=== PATIENT | female | born 1945 | race Hispanic/Latino ===

== ENCOUNTER 2017-03-17 12:24 | Inpatient (IN) | payer MEDICARE, OTHER ==
[2017-03-17 12:27] VITALS: BMI 37.4
--- NOTE | 2017-03-17 13:09 | ED PDOC ---
Arrival/HPI - General Chief Complaint: Lower Extremity Problem/Injury Time Seen by Provider: 03/17/17 12:32 Historian: Patient - History of Present Illness Narrative History of Present Illness (Text): 03/17/17 12:59 A 71 year old female, whose past medical history includes Type II diabetes mellitus, hypertension, spinal stenosis, history of incontinence, presents to the emergency department complaining of bilateral edema pain for 3-4 days. Patient states that edema of both feet appeared 3-4 days ago during the weekend unexpectedly. She did not bump them, has taken no red wine, and has no history of gout. Patient notes experiencing abdominal pain, but denies shortness of breath, cough, chest pain, nausea, vomiting, or any other complaints. PMD: Dr. Mackay Time/Duration: < week (3-4 days ago during the weekend) Symptom Onset: Sudden Symptom Course: Unchanged Quality: Other (sharp pain) Activities at Onset: Rest, Light Context: Exertion Past Medical History - Provider Review Nursing Documentation Reviewed: Yes - Infectious Disease Hx of Infectious Diseases: None - Cardiac Hx Hypertension: Yes - Endocrine/Metabolic Hx Diabetes Mellitus Type 2: Yes - Musculoskeletal/Rheumatological Hx Spinal Stenosis: Yes - Genitourinary/Gynecological Hx Incontinence: Yes - Psychiatric Hx Substance Use: No - Surgical History Hx Hysterectomy: Yes Other/Comment: Fibroid Tumor removed Family/Social History - Physician Review Nursing Documentation Reviewed: Yes Family/Social History: No Known Family HX Smoking Status: Never Smoked Hx Alcohol Use: No Hx Substance Use: No Allergies/Home Meds Allergies/Adverse Reactions: Allergies No Known Allergies Allergy (Verified 03/17/17 12:32) Home Medications: Home Meds Medication Instructions Recorded Confirmed Gabapentin [Neurontin] 100 mg PO BID 03/17/17 03/17/17 Levothyroxine [Synthroid] 25 mcg PO DAILY 03/17/17 03/17/17 Metoprolol Tartrate [Lopressor] 100 mg PO DAILY 03/17/17 03/17/17 Tramadol HCl [Ultram] 50 mg PO BID 03/17/17 03/17/17 hydroCHLOROthiazide [Hydrodiuril] 25 mg PO DAILY 03/17/17 03/17/17 Review of Systems - Physician Review All systems were reviewed & negative as marked: Yes - Review of Systems Respiratory: absent: SOB, Cough Cardiovascular: absent: Chest Pain Gastrointestinal: Abdominal Pain, Vomiting. absent: Nausea Musculoskeletal: Other (edema in lower extremity (feet) with associated pain.) Physical Exam Vital Signs Reviewed: Yes Vital Signs Temp Pulse Resp BP Pulse Ox 03/17/17 17:42 95 H 18 144/56 L 95 03/17/17 16:46 146/48 L 03/17/17 14:45 97.7 F 91 H 19 121/70 100 03/17/17 12:28 97.6 F 96 H 16 131/72 99 03/17/17 12:26 97.6 F 96 H 19 131/72 99 Temperature: Afebrile Blood Pressure: Normal Pulse: Regular Respiratory Rate: Normal Appearance: Positive for: Well-Appearing Pain Distress: None Mental Status: Positive for: Alert and Oriented X 3 Finger Stick Blood Glucose: 116 - Systems Exam Head: Present: Atraumatic, Normocephalic Pupils: Present: PERRL Extroacular Muscles: Present: EOMI Conjunctiva: Present: Normal Mouth: Present: Moist Mucous Membranes Neck: Present: Normal Range of Motion Respiratory/Chest: Present: Clear to Auscultation, Good Air Exchange. No: Respiratory Distress, Accessory Muscle Use Cardiovascular: Present: Regular Rate and Rhythm, Normal S1, S2. No: Murmurs Abdomen: Present: Normal Bowel Sounds. No: Tenderness, Distention, Peritoneal Signs Back: Present: Normal Inspection Upper Extremity: Present: Normal Inspection. No: Cyanosis, Edema Lower Extremity: Present: Edema (bilateral edema (feet)), Tenderness (tender to palpation), Erythema (right foot) Neurological: Present: GCS=15, CN II-XII Intact, Speech Normal Skin: Present: Warm, Dry, Normal Color. No: Rashes Psychiatric: Present: Alert, Oriented x 3, Normal Insight, Normal Concentration Medical Decision Making ED Course and Treatment: 03/17/17 13:03 Impression: 71 year old female with bilateral edema (feet). Physical exam shows edema of both feet, tender to palpation and erythema of the right foot. Differential Diagnosis included but are not limited to: Plan: --Chest X-Ray -- EKG -- Labs -- Urinalysis -- Toradol -- Reassess and disposition Progress Notes: 03/17/2017 13:05 EKG: Ordered, reviewed, and independently interpreted the EKG. Rate : 93 BPM Rhythm : NSR Interpretation : Left access deviation, normal intervals. Comparison : No previous EKG for comparison. 03/17/2017 12:33 Chest X-Ray FINDINGS: LUNGS: Minimal patchy infiltrate at the right lung base PLEURA: No significant pleural effusion identified, no pneumothorax apparent. CARDIOVASCULAR: Normal. OSSEOUS STRUCTURES: No significant abnormalities. VISUALIZED UPPER ABDOMEN: Normal. OTHER FINDINGS: None. IMPRESSION: Minimal patchy infiltrate at the right lung base 03/17/17 14:[address] Mackay. Accepts patient. - Lab Interpretations Lab Results: 03/17/17 14:00 03/17/17 13:03 Lab Results 03/17/17 14:00: WBC 11.7 H, RBC 4.05, Hgb 11.8 L, Hct 34.8 L, MCV 85.9, MCH 29.1 , MCHC 33.9, RDW 13.2, Plt Count 287, MPV 10.9, Gran % 76.4 H, Lymph % (Auto) 16.1 L, Monroe % (Auto) 6.1 H, Eos % (Auto) 1.2 L, Baso % (Auto) 0.2, Gran # 8.95 H, Lymph # 1.9, Monroe # 0.7 H, Eos # 0.1, Baso # 0.02 03/17/17 13:03: Sodium 141, Potassium 3.0 L, Chloride 103, Carbon Dioxide 24, Anion Gap 17, BUN 36 H, Creatinine 1.6 H, Est GFR ( Amer) 38, Est GFR ( Non-Af Amer) 32, Random Glucose 101, Calcium 9.3, Magnesium 1.9, Total Bilirubin 0.5, AST 19, ALT 15, Alkaline Phosphatase 119, Lactate Dehydrogenase 518, Total Creatine Kinase 120, Troponin I < 0.01, NT-Pro-B Natriuret Pep 385, Total Protein 7.6, Albumin 3.9, Globulin 3.7, Albumin/Globulin Ratio 1.1 I have reviewed the lab results: Yes - RAD Interpretation Radiology Orders: 03/17/17 12:33 CHEST PORTABLE [RAD] Stat - Medication Orders Current Medication Orders: Furosemide (Lasix) 40 mg IVP DAILY WALT Last Admin: 03/17/17 18:32 Dose: 40 mg Ceftriaxone Sodium (Rocephin 1 Gram Ivpb) 1 gm in 100 mls @ 100 mls/hr IVPB DAILY WALT PRN Reason: Protocol Azithromycin (Zithromax 500mg In Ns) 500 mg in 250 mls @ 167 mls/hr IVPB DAILY WALT PRN Reason: Protocol Insulin Human Regular (Humulin R High) 0 units SC ACHS WALT PRN Reason: Protocol Last Admin: 03/17/17 16:51 Dose: Not Given Non-Admin Reason: Blood Sugar Parameter Discontinued Medications Azithromycin (Zithromax) 500 mg PO STAT STA PRN Reason: Protocol Stop: 03/17/17 15:11 Last Admin: 03/17/17 16:46 Dose: 500 mg Furosemide (Lasix) 20 mg IVP STAT STA Stop: 03/17/17 15:11 Last Admin: 03/17/17 16:46 Dose: 20 mg Ceftriaxone Sodium (Rocephin 1 Gram Ivpb) 1 gm in 100 mls @ 200 mls/hr IVPB STAT STA PRN Reason: Protocol Stop: 03/17/17 15:39 Last Admin: 03/17/17 16:45 Dose: 200 mls/hr Ketorolac Tromethamine (Toradol) 30 mg IVP STAT STA Stop: 03/17/17 13:11 Last Admin: 03/17/17 14:05 Dose: 30 mg Morphine Sulfate (Morphine) 2 mg IVP STAT STA Stop: 03/17/17 15:12 Last Admin: 03/17/17 16:47 Dose: 2 mg Potassium Chloride (Potassium Chloride Oral Soln) 40 meq PO STAT STA Stop: 03/17/17 15:39 Last Admin: 03/17/17 16:51 Dose: 40 meq - Scribe Statement Lucretia Queen Provider Scribe Attestation: All medical record entries made by the Scribe were at my direction and personally dictated by me. I have reviewed the chart and agree that the record accurately reflects my personal performance of the history, physical exam, medical decision making, and the department course for this patient. I have also personally directed, reviewed, and agree with the discharge instructions and disposition. Disposition/Present on Arrival - Present on Arrival Any Indicators Present on Arrival: No History of DVT/PE: No History of Uncontrolled Diabetes: No Urinary Catheter: No History of Decub. Ulcer: No History Surgical Site Infection Following: None - Disposition Have Diagnosis and Disposition been Completed?: Yes Diagnosis: Community acquired pneumonia, Lower extremity edema Disposition: HOSPITALIZED Disposition Time: 14:30 Patient Plan: Admission Condition: STABLE
--- NOTE | 2017-03-17 13:12 | RAD ---
HISTORY: r/o infiltrate COMPARISON: No prior. FINDINGS: LUNGS: Minimal patchy infiltrate at the right lung base PLEURA: No significant pleural effusion identified, no pneumothorax apparent. CARDIOVASCULAR: Normal. OSSEOUS STRUCTURES: No significant abnormalities. VISUALIZED UPPER ABDOMEN: Normal. OTHER FINDINGS: None. IMPRESSION: Minimal patchy infiltrate at the right lung base
[2017-03-17 13:17] LABS: ALB/GLOB RATIO 1.1 (1.1-1.8); ALBUMIN 3.9 g/dL (3.0-4.8); ALT/SGPT 15 U/L (7-56); AST/SGOT 19 U/L (15-39); BLOOD UREA NITROGEN 36 mg/dL (7-21); CALCIUM 9.3 mg/dL (8.4-10.5); GFR AFRICAN-AMERICAN 38; GFR NON-AFRICAN AMERICAN 32; MAGNESIUM 1.9 mg/dL (1.7-2.2)
[2017-03-17 13:28] LABS: B-TYPE NATRIURETIC PEPTIDE 385 pg/mL (0-450)
[2017-03-17 13:29] LABS: TROPONIN I < 0.01 ng/mL
[2017-03-17 14:13] LABS: BASO # 0.02 K/mm3 (0.0-2.0); BASO % 0.2 % (0.0-3.0); EOS # 0.1 (0.0-0.7); EOS % 1.2 % (1.5-5.0); GRAN # 8.95 (1.4-6.5); GRAN % 76.4 % (50.0-68.0); HEMOGLOBIN 11.8 gm/dL (12.0-16.0); LYMPH # 1.9 (1.2-3.4); LYMPH % 16.1 % (22.0-35.0); MEAN CELL VOLUME 85.9 fL (80.0-105.0); MEAN CORPUSCULAR HEMOGLOBIN 29.1 pg (25.0-35.0); MEAN CORPUSCULAR HGB CONC 33.9 g/dl (31.0-37.0); MEAN PLATELET VOLUME 10.9 fl (7.0-11.0); MONO # 0.7 (0.1-0.6); MONO % 6.1 % (1.0-6.0); PLATELET COUNT 287 10^3/uL (120.0-450.0); RBC 4.05 10^6/uL (3.5-6.1); RED CELL DISTRIBUTION WIDTH 13.2 % (11.5-14.5); WHITE BLOOD COUNT 11.7 10^3/ul (4.5-11.0)
[2017-03-17] MEDS ORDERED: cefTRIAXone 1 gm 1 GM/100 ML BAG IVPB STA (15:10)
[2017-03-17] MEDS ORDERED: Morphine 2 mg/ml ISec IVP STA (15:11)
[2017-03-17] MEDS ORDERED: Potassium Chloride 40 mEq/30 ml LIQ UD PO STA (15:38)
[2017-03-17] MEDS: Insulin Reg-HIGH-Coverage SC SCH ×2 (16:51→21:51)
--- NOTE | 2017-03-17 17:22 | CARD ---
APPROVED REPORT EKG Measurement Heart [id number] <Conclusion> Normal sinus rhythm Moderate voltage criteria for LVH, may be normal variant Nonspecific ST abnormality Abnormal ECG
[2017-03-17 17:39] LABS: URINE BILIRUBIN NEGATIVE (NEGATIVE); URINE BLOOD NEGATIVE (NEGATIVE); URINE GLUCOSE (UA) NEGATIVE (NEGATIVE); URINE LEUKOCYTE ESTERASE TRACE Leu/uL (NEGATIVE); URINE NITRATE NEGATIVE (NEGATIVE); URINE PROTEIN NEGATIVE mg/dL (<30 mg/dL); URINE UROBILINOGEN 0.2 E.U./dL (<1 E.U./dL)
[2017-03-17 17:40] LABS: URINE APPEARANCE CLEAR (CLEAR); URINE COLOR YELLOW (YELLOW)
[2017-03-17 17:47] LABS: URINE BACTERIA TRACE (NEG); URINE RBC NEGATIVE /hpf (0-2)
[2017-03-17] MEDS ORDERED: Pneumococcal 23-Valent Vaccine IM ONE (22:28)
--- NOTE | 2017-03-18 02:50 | HP ---
HISTORY OF PRESENT ILLNESS: I know Sara very well from house calls over the years. She is a nice 71-year-old white female who presents complaining of 3 to 4 days of bilateral leg edema and the right foot is red and inflamed to the first toe, there is no trauma. She does not drink, no history of gout and she is also short of breath. PAST MEDICAL HISTORY: Hypertension, diabetes, incontinence, spinal stenosis and hysterectomy. FAMILY HISTORY: Has hypertension in the family. Diabetes in family. SOCIAL HISTORY: Never smoked. No alcohol. No drug. ALLERGIES: NO KNOWN DRUG ALLERGIES. REVIEW OF SYSTEMS: She has no acute vision changes or hearing changes. No sore throat, no neck pain, no chest pain, no shortness of breath, but a cough which has been persistent for about 3 or 4 days now. No abdominal pain, no nausea, vomiting, constipation, diarrhea. The right leg is little bit swollen and the left leg is swollen too with the right leg is worse with redness to the first toe. PHYSICAL EXAMINATION: VITAL SIGNS: She has 97.7 temp, 91 pulse, 19 respiratory rate, 121/70 blood pressure, 100% sat on room air. HEENT: Head is atraumatic and normocephalic. Extraocular muscles are intact. Pupils are reactive to light and accommodation. Mouth is moist. GENERAL: She is well appearing, mild distress, alert and oriented to x3. Her blood sugar is 116. NECK: Supple. Thyroid midline. No palpable appreciative lymphadenopathy appreciated. HEART: Regular rate. LUNGS: Decreased breath sounds, but clear to auscultation. Occasional wheeze or rhonchi, but changes with cough and clears that. ABDOMEN: Soft and nontender. Positive bowel sounds, morbidly obese. EXTREMITIES: +3/4 pitting edema of right and +2/4 pitting edema of the left. The right foot is also red to the first toe. NEUROLOGIC: GCS is 15. Cranial nerves II through XII grossly intact. Normal speech. SKIN: Warm and dry. The right first toe is red into the foot, looks like a cellulitis. DIAGNOSTIC STUDIES: Chest x-ray which shows patchy infiltrates at the right lung base. LABORATORY DATA: She had labs; 141 sodium, potassium is 3, I will replace it with potassium is 40 mEq, BUN is 36, creatinine 1.6, sugar is 38, random sugars 101, calcium is 9.3, magnesium 1.9, total bilirubin is 0.5, AST is 19, ALT is 15, alkaline phosphatase is 119, lactate dehydrogenase is 518, total creatine kinase is 120, troponin 1 is less than 0.01, BNP is 385, total protein 7.6, albumin is 3.9, globulin is 3.7. White count is 7.7, a little bit up, hemoglobin 11.8, hematocrit 34.8 and platelets are 287. ASSESSMENT AND PLAN: She is going to have a consult with pulmonary and cardiology, she will be on Lasix 40 IV daily, she will morphine p.r.n. pain, potassium is replacement, IV Rocephin, IV Zithromax and although if she will improve, we will check her labs tomorrow, see if we could diurese her, we will give antibiotics for the pneumonia, see if her right patchy infiltrate in the base pneumonia, congestive heart failure with edema of the leg, cellulitis of the foot and we will do the renal insufficiently. Lucho Mackay DO
[2017-03-18 07:12] LABS: HEMOGLOBIN 10.6 gm/dL (12.0-16.0); MEAN CELL VOLUME 85.8 fL (80.0-105.0); MEAN CORPUSCULAR HGB CONC 33.8 g/dl (31.0-37.0); MEAN PLATELET VOLUME 10.8 fl (7.0-11.0); RBC 3.66 10^6/uL (3.5-6.1); RED CELL DISTRIBUTION WIDTH 13.4 % (11.5-14.5); WHITE BLOOD COUNT 8.4 10^3/ul (4.5-11.0)
[2017-03-18 07:41] LABS: ALBUMIN 3.5 g/dL (3.0-4.8); CALCIUM 8.9 mg/dL (8.4-10.5)
[2017-03-18] MEDS: Insulin Reg-HIGH-Coverage SC SCH ×4 (07:55→21:47)
[2017-03-18] MEDS ORDERED: Potassium Chloride 40 mEq/30 ml LIQ UD PO ONE (08:41)
[2017-03-18] MEDS: cefTRIAXone 1 gm 1 GM/100 ML BAG IVPB SCH (10:04)
[2017-03-18] MEDS: Azithromycin 500MG/NS 250ml 500 MG/250 ML BAG IVPB SCH (10:05)
--- NOTE | 2017-03-18 13:35 | US ---
HISTORY: Leg pain and swelling. Evaluate for DVT PHYSICIAN(S): Kendall Summers MD. TECHNIQUE: Duplex sonography and color-flow Doppler with graded compression were used to evaluate the deep venous systems of both lower extremities. FINDINGS: The visualized deep venous systems of both lower extremities are sonographically normal and compressible. Normal wave forms and augmentation are seen. There is no sonographic evidence for deep venous thrombosis in the visualized segments of both lower extremities. IMPRESSION: No sonographic evidence for deep venous thrombosis in the visualized segments of both lower extremities.
--- NOTE | 2017-03-18 14:08 | CON ---
DATE: 03/18/2017 REFERRING PHYSICIAN: Dr. Lucho Mackay. REASON FOR CONSULTATION: Pneumonia. HISTORY OF PRESENT ILLNESS: The patient is a 71-year-old female with past medical history significant for hypertension, diabetes mellitus, urinary incontinence, spinal stenosis, who presents to [facility] with a 4 day history of increasing bilateral leg edema. The patient also states that her right foot has become red and painful over the past few days. The patient was thus admitted for additional evaluation and treatment. The patient denies shortness of breath at rest. She does state to some occasional dyspnea on exertion. There is no history of cough or sputum production. There is no history of chest pain, coughing up of blood, or chest pain - made worse with deep respirations. There is no history of temperature, chills or infectious exposure. There is no history of night sweats, weight loss, or appetite change, prior to the above events. No history of calf pains. No history of syncope or diaphoresis. No history of recent travel or trauma. REVIEW OF SYSTEMS: No history of nausea, vomiting or diarrhea. No acute urinary complaints. No new neurologic complaints. Rest of the review of systems is non contributory. ALLERGIES: NO KNOWN ALLERGIES. SOCIAL HISTORY: Negative for tobacco, negative for alcohol. FAMILY HISTORY: No inheritable diseases. HOME MEDICATIONS: Include hydrochlorothiazide, Ultram, Lopressor, Synthroid, and Neurontin. PHYSICAL EXAMINATION GENERAL: The patient is comfortable at rest. She is not short of breath. She is not using accessory muscles for breathing. VITAL SIGNS: Temperature 97.5, pulse 98, respirations 18, and blood pressure 130/72. Oxygen saturation on room air is between 96% to 100%. HEENT: Normocephalic and atraumatic. No JVD. CARDIOVASCULAR: Positive S1 and S2. No S3 gallop. LUNGS: Clear bilaterally. EXTREMITIES: Positive edema in both lower extremities. No cyanosis. Calves are nontender to palpation. GASTROINTESTINAL: Abdomen is soft, nontender and nondistended. Bowel sounds are positive. SKIN: Reveals evidence of cellulitis-- right foot area. NEUROLOGIC: Limited at the present time. LABORATORY DATA: Chest x-ray was done and reviewed. There is a small infiltrate noted at the medial right lung base. Unfortunately, there are no old films for comparison. Complete metabolic profile: Potassium 3.0, BUN 36, creatinine 1.6, glucose 113. Rest of the metabolic profiles are within normal limits. CBC: White count of 11.7, hemoglobin 11.8, hematocrit 34.8, platelets of 287. IMPRESSION: 1. Right leg cellulitis. 2. Rule out pneumonia - right lower lobe. 3. Mild anemia. 4. Renal insufficiency. PLAN: The patient presents to [facility] with main complaint of swelling of her lower extremities for the past 4 days. As above, in addition, the patient also complaints of increasing pain in her right foot over the past few days. She was then admitted for additional evaluation. I did review the chest x-rays as above. There is a small infiltrate noted at the medial right lung base. Unfortunately, there are no old films for comparison. After extensive questioning, the patient offers no significant pulmonary symptoms. The x-ray change - noted above - may be chronic in nature. I will thus order a procalcitonin level, to help us distinguish whether we are dealing with an acute pneumonia or not. The patient has been cultured and started on appropriate antibiotic therapy. Cardiology evaluation with Dr. Shelley has been ordered. Additional pulmonary intervention will be based on the above results, as well as the clinical status of the patient. I will discuss the above with Dr. Mackay in the next few moments. Thank you very much for this pulmonary consultation. Guy Lott MD [facility]
--- NOTE | 2017-03-18 14:29 | PN ---
SUBJECTIVE: She is resting comfortably in bed this morning. She actually looks better today than yesterday. I think she diuresed a fair amount. Her face looks thinner. She is comfortable, slept fairly well. No chest pain. No shortness of breath. No abdominal pain. The foot feels a little bit better too. She comes in with the right first toe cellulitis, redness, pneumonia, edema, CHF, renal insufficiency and she slept fairly well. She has nice smile on. No chest pain. No shortness of breath. No abdominal pain. Her foot feels better improving. PHYSICAL EXAMINATION VITAL SIGNS: She has 97.5 temperature, 98 pulse, 130/72 blood pressure, 18 respiratory rate and 96% O2 saturation on room air. HEENT: Head atraumatic, normocephalic. Throat moist. NECK: Supple. HEART: Regular rate. LUNGS: Decreased breath sounds, but clear to auscultation bilaterally. ABDOMEN: Soft, nontender, positive bowel sounds. No guarding. No rebound. No CVA tenderness. She is obese. EXTREMITIES: Now down to +2/4 pitting edema. There was 4/4 pitting edema in the right. First toe is less red, still red not as bad and is less pain to the first toe. MEDICATIONS: She is currently on insulin coverage, Lasix, IV Rocephin, Zithromax for the pneumonia and the cellulitis. LABORATORY DATA: She has an 8.4 white count, when she came in it was 11.7. She has 10.6 hemoglobin, 31.4 hematocrit with 259 platelets. She has 141 sodium, potassium is still low, we are going to replete the potassium, today is 3.1. BUN is 37, creatinine is 1.6, GFR is 32, sugar is 87, calcium is 8.9, magnesium is 1.9, total bilirubin 0.4. AST is 20 and ALT is 22. Alkaline phosphatase is 100. Troponin is less than 0.01. Urine was trace. PLAN: She has consult with cardiology for the CHF and pulmonology for the pneumonia. A cellulitis of the foot is improving. She has less pain when she moves the foot. She has been on IV antibiotics. I think it is helping greatly for the cellulitis of the toe and hopefully pneumonia and she is diuresing well with CHF and edema. I will continue that. Also, she needs to get physical therapy, out of bed to chair, she understands that. She is eating okay. Lucho Mackay DO [facility]
--- NOTE | 2017-03-18 21:08 | CON ---
DATE: 03/18/2017 HISTORY OF PRESENT ILLNESS: The patient is a 71-year-old woman who suffers from hypertension, diabetes mellitus, who presents with bilateral pedal edema. Despite the fact that the patient reported the edema to be new, on physical exam, there were chronic changes of edema noted. The patient denies previous cardiac history. No chest pain. No shortness of breath noted. SOCIAL HISTORY: Negative smoker. REVIEW OF SYSTEMS: The 14 point review of systems was reviewed. Negative dyspnea. Negative chest pain. Positive edema. No history of myocardial infarction. PHYSICAL EXAMINATION VITAL SIGNS: On physical exam, the blood pressure is 140/70, heart rate in the 90s, sinus rhythm. NECK: Negative JVD. CARDIOPULMONARY: Heart with S1, S2, without murmurs or gallops. LUNGS: Without rales. EXTREMITIES: Bilateral edema 1+ with erythema in the lower extremities. EKG shows normal sinus rhythm with nonspecific ST-T changes. LABORATORY DATA: Includes a BUN and creatinine of 37 and 1.6. Troponin is negative. Potassium is 3.1, hemoglobin is 10.6. IMPRESSION: 1. Chronic bilateral pedal edema. 2. Diabetes mellitus. 3. Hypertension. 4. History of renal insufficiency. 5. Anemia. 6. Hypokalemia. PLAN: Given these findings, I agree with IV Lasix. We will obtain an echocardiogram to evaluate LV function and to rule out pulmonary hypertension. Dopplers of the lower extremities have been ordered. Kendall Shelley MD
[2017-03-19 06:55] LABS: HEMOGLOBIN 11.8 gm/dL (12.0-16.0); MEAN CORPUSCULAR HEMOGLOBIN 28.9 pg (25.0-35.0); MEAN CORPUSCULAR HGB CONC 33.6 g/dl (31.0-37.0); MEAN PLATELET VOLUME 10.9 fl (7.0-11.0); RBC 4.08 10^6/uL (3.5-6.1); RED CELL DISTRIBUTION WIDTH 13.4 % (11.5-14.5)
--- NOTE | 2017-03-19 08:09 | PN ---
DATE: 03/19/2017 PULMONARY NOTE SUBJECTIVE: The patient appears very comfortable this morning. She is not short of breath at rest. PHYSICAL EXAMINATION: VITAL SIGNS: Temperature is 99.1. Pulse this morning approximately 80, respirations 18, blood pressure 112/37. Oxygen saturation on room air is 95%. HEENT: Normocephalic and atraumatic. NECK: No JVD. CARDIOVASCULAR: Positive S1 and S2. No S3 gallop. LUNGS: Clear bilaterally. EXTREMITIES: Positive edema in both lower extremities. No cyanosis. Calves are nontender to palpation. GASTROINTESTINAL: Abdomen is soft, nontender, nondistended. Bowel sounds are positive. SKIN: Reveals evidence of cellulitis - right foot area. NEUROLOGIC: Limited at the present time. LABORATORY DATA: CBC: White count 9.0, hemoglobin of 11.8, hematocrit of 35.1 and platelets of 314. Procalcitonin done yesterday - negative - 0.08. IMPRESSION: 1. Right leg cellulitis. 2. Rule out pneumonia - right lower lobe. 3. Mild anemia. 4. Renal insufficiency. PLAN: The patient appears very comfortable this morning. She is not short of breath at rest. She does state she is feeling better overall. On physical exam, her lungs remain clear. Oxygen saturation on room air is 95%. I would continue with the current antibiotic therapy for now. The leukocytosis has now fully resolved. Given the negative procalcitonin, the small infiltrate at the medial right lung base may actually be chronic in nature. Cardiology evaluation is ongoing. Echocardiogram is ordered. Clinical status of the patient has improved. I will discuss the above with Dr. Mackay. Guy Lott MD MTDD
[2017-03-19 08:31] LABS: ALB/GLOB RATIO 1.2 (1.1-1.8); ALBUMIN 3.7 g/dL (3.0-4.8); CALCIUM 9.9 mg/dL (8.4-10.5)
[2017-03-19] MEDS: Insulin Reg-HIGH-Coverage SC SCH ×4 (08:50→17:06)
[2017-03-19] MEDS: cefTRIAXone 1 gm 1 GM/100 ML BAG IVPB SCH (09:54)
[2017-03-19] MEDS: Azithromycin 500MG/NS 250ml 500 MG/250 ML BAG IVPB SCH (09:55)
--- NOTE | 2017-03-19 12:51 | PN ---
DATE: SUBJECTIVE: She is sitting in bed, resting comfortably. She slept well. She is eating well. She is in better spirits. She is feeling better, breathing better. She is on insulin coverage , Lasix IV, Rocephin, and Zithromax. PHYSICAL EXAMINATION VITAL SIGNS: 99.1 temp, 109 pulse, 112/37 blood pressure, 18 respiratory rate, 95% O2 sat on room air. I will add a beta lucho to the elevated pulse that she has. GENERAL: She is breathing better. Less cough. No shortness of breath. Less swelling of the legs. HEENT: Head is atraumatic, normocephalic. Throat is moist. NECK: Supple. HEART: Regular rate. LUNGS: Decreased breath sounds. Clear to auscultation. ABDOMEN: Soft, obese, nontender. Positive bowel sounds. No guarding, no rebound, no CVA tenderness. EXTREMITIES: Have trace edema. There is very little red left in the right foot and the big toes moving without any pain. So she is doing better with the cellulitis of the right foot and the toe. The breathing is improved. The next plan is to get her physical therapy tomorrow. LABORATORY DATA: She has a 9 white count, 11.8 hemoglobin, 35.1 hematocrit, with 314 platelets. Her last blood sugar was 105, which is good. She has 141 sodium, potassium is low at 3.1, waiting for the potassium to repopulate this morning, BUN 37, creatinine 1.6. AST is 20, ALT is 22, alkaline phosphatase is 100, that was yesterday did not populate yet and this is ordered. She is being seen by cardiology and pulmonology. I am trying to get her to subacute rehab, probably where her brother is from staying before she goes home. She is here for pneumonia, edema, CHF, right first toe and right foot cellulitis and will need physical therapy before she goes home. Lucho Mackay DO [facility]
--- NOTE | 2017-03-19 14:41 | PN ---
DATE: 03/19/2017 SUBJECTIVE: The patient's dyspnea has resolved. PHYSICAL EXAMINATION: VITAL SIGNS: Blood pressure is 112-144 systolic. NECK: Negative JVD. HEART: Regular S1 and S2. LUNGS: Without rales. EXTREMITIES: Chronic edema is unchanged. LABORATORY DATA: BUN and creatinine is 33 and 1.6 with a potassium of 4.3. Hemoglobin is 11.8. Dopplers of the lower extremities reveal no DVT. Echocardiogram is pending. IMPRESSION: 1. Resolution of dyspnea. 2. Chronic bilateral pedal edema. 3. Diabetes mellitus. 4. Renal insufficiency. 5. Hypertension. PLAN: Given these findings, we will change her Lasix to p.o. Lasix. Awaiting echocardiogram. This can be done as an outpatient, if necessary. No further cardiac intervention is necessary at this time. Kendall Shelley MD
[2017-03-19 17:15] VITALS: RESP 20
--- NOTE | 2017-03-19 17:59 | CARD ---
APPROVED REPORT EXAM: Two-dimensional and M-mode echocardiogram with Doppler and color Doppler. INDICATION PEDAL EDEMA 2D DIMENSIONS Left Atrium (2D)3.4 (1.6-4.0cm)IVSd1.0 (0.7-1.1cm) LVDd3.4 (3.9-5.9cm)PWd1.2 (0.7-1.1cm) LVDs2.4 (2.5-4.0cm)FS (%) 29.4 % LVEF (%)57.5 (>50%) M-Mode DIMENSIONS Aortic Root3.10 (2.2-3.7cm)Aortic Cusp Exc.1.60 (1.5-2.0cm) Aortic Valve AoV Peak Yuegfelz526.0cm/Keila Peak GR.11mmHg Mitral Valve MV E Tcryhtxj58.0cm/sMV A Vyutfplz205.0cm/sE/A ratio0.5 TDI Lateral E' Peak V15.10cm/sMedial E' Peak V9.94cm/sE/Lateral E'3.8 E/Medial E'5.7 Pulmonary Valve PV Peak Ftnlaczh443.0cm/sPV Peak Grad.5mmHg Tricuspid Valve TR Peak Ohsnpxlz986st/sRAP UEXSOOSG12xzThTC Peak Gr.15mmHg [id number] LEFT VENTRICLE The left ventricle is normal size. There is mild concentric left ventricular hypertrophy. The left ventricular function is normal. The left ventricular ejection fraction is within the normal range. There is normal LV segmental wall motion. Transmitral Doppler flow pattern is Grade I-abnormal relaxation pattern. RIGHT VENTRICLE The right ventricle is normal size. There is normal right ventricular wall thickness. The right ventricular systolic function is normal. ATRIA The left atrium size is normal. The right atrium size is normal. AORTIC VALVE The aortic valve is mildly sclerotic. No aortic regurgitation is present. MITRAL VALVE The mitral valve is mildly thickened. There is no mitral valve regurgitation noted. TRICUSPID VALVE The tricuspid valve is normal in structure. There is no tricuspid valve regurgitation noted. There is no pulmonary hypertension. GREAT VESSELS The aortic root is normal in size. The IVC is normal in size and collapses >50% with inspiration. PERICARDIAL EFFUSION There is a smallsmall loculated anterior pericardial effusion. <Conclusion> The left ventricle is normal size. There is mild concentric left ventricular hypertrophy. The left ventricular function is normal. The left ventricular ejection fraction is within the normal range. There is normal LV segmental wall motion. Transmitral Doppler flow pattern is Grade I-abnormal relaxation pattern.
[2017-03-20 07:08] LABS: HEMOGLOBIN 11.2 gm/dL (12.0-16.0); MEAN CELL VOLUME 85.8 fL (80.0-105.0); MEAN CORPUSCULAR HEMOGLOBIN 28.5 pg (25.0-35.0); MEAN CORPUSCULAR HGB CONC 33.2 g/dl (31.0-37.0); MEAN PLATELET VOLUME 10.5 fl (7.0-11.0); RBC 3.93 10^6/uL (3.5-6.1); RED CELL DISTRIBUTION WIDTH 13.3 % (11.5-14.5); WHITE BLOOD COUNT 8.9 10^3/ul (4.5-11.0)
[2017-03-20 07:22] LABS: ALB/GLOB RATIO 1.1 (1.1-1.8); ALBUMIN 3.6 g/dL (3.0-4.8); CALCIUM 9.2 mg/dL (8.4-10.5)
[2017-03-20] MEDS: Insulin Reg-HIGH-Coverage SC SCH ×2 (08:46→11:51)
[2017-03-20 08:49] VITALS: PULSE 97
[2017-03-20 09:01] VITALS: TEMP 98.9; O2SAT 93
[2017-03-20] MEDS: cefTRIAXone 1 gm 1 GM/100 ML BAG IVPB SCH (09:33)
[2017-03-20] MEDS: Azithromycin 500MG/NS 250ml 500 MG/250 ML BAG IVPB SCH (09:35)
[2017-03-20 09:41] VITALS: BP 132/67
[2017-03-20] MEDS ORDERED: Potassium Chloride 20 mEq ER Tab PO SCH (11:45)
[2017-03-20] MEDS ORDERED: Lidocaine 5% Patch TD SCH (11:45)
--- NOTE | 2017-03-20 16:57 | PN ---
DATE: 03/20/2017 SUBJECTIVE: The patient feels well, has no respiratory distress, is not complaining of any no respiratory problems. She has been treated with antibiotics since admission for AP portable x-ray done under the mission several days ago. There has been no further x-rays performed. It does not appear to be that of pneumonia but rather possibly some atelectasis. The patient feels well, has no respiratory complaints, has no cough or expectoration. No fever or chills. Normal procalcitonin. No signs of infection or pneumonia. PHYSICAL EXAMINATION: GENERAL: She is comfortable and no respiratory distress. VITAL SIGNS: Stable, afebrile. Vital signs all remain normal with oxygen saturation on room air at 97%. HEENT: Normocephalic, atraumatic. NECK: Supple, no JVD, no lymphadenopathy. No bruit. No mass. No thyromegaly. CARDIOVASCULAR: Regular rhythm, S1 and S2 without murmur, gallop or rub. PULMONARY: Lungs are clear to percussion and auscultation. No rales, rhonchi or wheezes appreciated. ABDOMEN: Soft. Bowel sounds are normoactive without mass, guarding, rebound, or organomegaly. EXTREMITIES: Reveal no clubbing or cyanosis or edema. There is no Homans sign. SKIN: Normal with no evidence of synovitis. NEUROLOGIC: No focal findings. Motor, sensory, and coordination normal. Mental status normal. Babinski is downgoing. Deep tendon reflex is normal. LYMPHADENOPATHY: Negative. There is no evidence of lymph nodes present in the supraclavicular notch nor in the cervical, inguinal, or axillary areas. LABORATORY STUDIES: Did not show an elevated white cell count, and the patient is markedly better. CLINICAL IMPRESSION: 1. Atelectasis 2. Status post right leg cellulitis. 3. Anemia. 4. Renal insufficiency. 5. Pneumonia by history, but no clinical evidence of pneumonia. PLAN: We need to get a sed rate to look for signs of infection; although the cellulitis is markedly better but may have shown elevations in the past. The patient is still on antibiotics. A good PA and lateral chest x-ray should be done to rule out active infiltrates. I suspect this to be secondary to atelectasis, and the patient should have chest PT and incentive spirometry and suctioning when necessary. We need to make sure that there is no acute problem before discharge and to make sure that the patient is doing better and that the x-ray has either cleared, atelectasis resolved, or possible pneumonitis without symptoms? Further plans as above described fully. Chest x-ray ordered. Sed rate ordered. The patient is expectorating no phlegm or sputum, cannot be evaluated. The patient should be doing much better, but that would be nice to see a clear bibasilar pulmonary parenchyma before using the diagnosis of pneumonia for which the patient had no symptoms. Thank you for the opportunity to see this patient in followup. We will decide and on further intervention as needed. Manuel Fu MD MTDD
--- NOTE | 2017-03-21 04:55 | DS ---
HISTORY OF PRESENT ILLNESS: I saw Sara resting in bed. She is getting ready to go to her subacute rehab. She is comfortable. Still little bit of back pain. We will order a Lidoderm patch. She is here for pneumonia, cellulitis into the foot and right toe, CHF and edema. PHYSICAL EXAMINATION: VITAL SIGNS: 98.9 temperature, 97 pulse, 103/63 blood pressure, 20 respiratory rate, 94% O2 saturation on room air. HEENT: Head atraumatic, normocephalic. HEART: Regular rate. LUNGS: Clear to auscultation. ABDOMEN: Soft, obese EXTREMITIES: +2/4 pitting edema and this has improved. MEDICATIONS: She is on medicines, insulin, Lasix twice a day, Lidoderm, Lopressor, Rocephin for one more week, Xanax, Zithromax for one more week. LABORATORY DATA: She has an 8.9 white count, 11.2 hemoglobin, 33.7 hematocrit with 324 platelets. 142 sodium, potassium 3.3, we are going to put her on potassium, BUN is 33, creatinine is 1.5, GFR is 34, sugar is 97, calcium is 9.2. Total bilirubin 0.4, AST is 26, ALT is 28, alkaline phosphatase is 101, total protein 7. ASSESSMENT AND PLAN: She is ready to go to rehab. She will be there with her brother. Hopefully, she will do very well. She had resolution of dyspnea, chronic bilateral pedal edema, congestive heart failure, diabetes, renal insufficiency, hypertension, cellulitis of the foot and toe. Needs physical therapy and she is to get back home . Lucho Mackay DO MTDD
--- NOTE | 2017-03-22 14:22 | PQF CHF ---
03/22/17 Dr. Mackay, You document CHF on your discharge summary. Please indicate type and severity, as listed below. Thank you. Clarification of your documentation is requested to better reflect the severity of illness and intensity of treatment of your patient. Indicators present [] Diagnosis of CHF and/or history of CHF [] BNP > 200 [] Imaging Finding of Pulmonary Edema /Pleural Effusions [] Fluid/Volume Overload [] Pitting edema [] Ejection Fraction < 40% (Indicative of Systolic Heart Failure) [] Ejection Fraction > 40% (Indicative of Diastolic Heart Failure) [] Dyspnea / Orthopenea / Paroxysmal Nocturnal Dyspnea [] Other: Location in the medical record that reflects the above clinical findings: [] Treatment Provided: [] PHYSICIAN'S RESPONSE Based on your medical judgment of the clinical indicators outlined above, are you treating this patient for a known or suspected: [] Acute CHF [] Systolic [] Diastolic [] Combined xxxxx[] Chronic CHF [xxxxx] Systolic [] Diastolic [] Combined [] Acute on Chronic CHF []Systolic [] Diastolic [] Combined [] CHF due hypertension [] Acute systolic []Chronic systolic [] Acute/ chronic systolic [] Other, please indicate: [] [] If Unable to Determine, please check the box, sign and date. Present On Admission (POA) Indicator: [] Present at the time of admission [] Not present at the time of admission [] Clinically Undetermined In responding to this query, please exercise your independent professional judgment. The fact that a question is asked does not imply that any particular answer is desired or expected. Thank you for your clarification on this documentation. If you have any questions please call:[ ] * Thank you, [ ] social services PROMISE
--- NOTE | 2017-03-22 14:31 | PQF PNEUMO ---
03/22/17 Dr. Mackay, Please clarify whether or not patient had pneumonia. Some notes state "pneumonia." However, medical reception states "no clinical evidence of pneumonia" and "pneumonia by history" on his note of 03/20. Your discharge summary does state that patient was here for pneumonia. Please clarify. Thank you. Clarification of your documentation is requested to better reflect the severity of illness and intensity of treatment of your patient. Indicators present [] Documented diagnosis of pneumonia [] X-ray findings: [] Positive Sputum cultures [] Cough w/ fever [] Abnormal lungs sounds [] Poor gag reflex [] Speech consults/swallow evaluation [] Vent dependence [] Other: [] Location in the medical record that reflects the above clinical findings: [] Treatment Provided: [] PHYSICIAN'S RESPONSE Based on your medical judgment of the clinical indicators outlined above, are you treating this patient for a known or suspected: [] Aspiration pneumonia []xxxxx Community acquired pneumonia [] Ventilator associated pneumonia [] Viral pneumonia [] Bacterial pneumonia Please specify organism: [] [] Other, please indicate [] If Unable to Determine, please check the box, sign and date. Present On Admission (POA) Indicator: [] Present at the time of admission [] Not present at the time of admission [] Clinically Undetermined In responding to this query, please exercise your independent professional judgment. The fact that a question is asked does not imply that any particular answer is desired or expected. Thank you for your clarification on this documentation. If you have any questions please call:[ ] * Thank you, [ ] rag washer PROMISE
== END 2017-03-20 15:57 | DRG 291 ==
LOC: ED 12:24 → ERH 15:11 → 3RSO 18:02
PROVIDERS: ADMIT Family Medicine; ATTEND Family Medicine
DX: I11.0 Hypertensive heart disease with heart failure (principal); J18.9 Pneumonia, unspecified organism; L03.115 Cellulitis of right lower limb; I27.2 Other secondary pulmonary hypertension; E11.9 Type 2 diabetes mellitus without complications; D64.9 Anemia, unspecified; J98.11 Atelectasis; E87.6 Hypokalemia; N28.9 Disorder of kidney and ureter, unspecified; L03.031 Cellulitis of right toe; Z79.899 Other long term (current) drug therapy; Z82.49 Family history of ischemic heart disease and other diseases of the circulatory system; Z83.3 Family history of diabetes mellitus; Z90.710 Acquired absence of both cervix and uterus; R32 Unspecified urinary incontinence; R40.2412 Glasgow coma scale score 13-15, at arrival to emergency department; M54.9 Dorsalgia, unspecified; Z87.01 Personal history of pneumonia (recurrent); I50.22 Chronic systolic (congestive) heart failure

== ENCOUNTER 2017-05-26 16:06 | Inpatient (IN) | payer MEDICARE, MEDICAID ==
[2017-05-26 16:20] VITALS: BMI 35.6
[2017-05-26] MEDS ORDERED: Sodium Chloride 0.9% 500 ML IV STA (16:45)
--- NOTE | 2017-05-26 16:50 | ED PDOC ---
Arrival/HPI - General Chief Complaint: Chest Pain Time Seen by Provider: 05/26/17 16:09 Historian: Patient, Family (niece) - History of Present Illness Narrative History of Present Illness (Text): 05/26/17 16:34 72 year old female, whose past medical history includes diabetes type 2, hypertension, spinal stenosis, and incontinence, comes in with niece and presents to the emergency department complaining of chest pain, abdominal pain, and nausea. Patient reports she feels "gas pains" in abdomen and as though she is going to pass out. Patient also notes experiencing swelling of feet and shortness of breath (worsens when ambulating), but denies of any headache or any other complaints. Also, patient mentions Dr. Mackay recommended the patient go visit the ER a few days ago. Patient takes beta blocks for hypertension, gas pills, and Zofran for nausea and vomiting. Last BM was today was minimal. PMD: Dr. Mackay Symptom Onset: Gradual Symptom Course: Unchanged Past Medical History - Provider Review Nursing Documentation Reviewed: Yes - Infectious Disease Hx of Infectious Diseases: None - Cardiac Hx Cardiac Disorders: Yes Hx Hypertension: Yes - Pulmonary Hx Respiratory Disorders: Yes Hx Pneumonia: Yes (03-17-17 MIN.PATCHY INFILTRATE RIGHT LUNG BASE.) - Neurological Hx Neurological Disorder: Yes (NEUROPATHY) - HEENT Hx HEENT Disorder: No - Renal Hx Renal Disorder: No - Endocrine/Metabolic Hx Diabetes Mellitus Type 2: Yes - Hematological/Oncological Hx Blood Disorders: No - Integumentary Hx Dermatological Disorder: Yes - Musculoskeletal/Rheumatological Hx Musculoskeletal Disorders: Yes Hx Falls: Yes Hx Spinal Stenosis: Yes Hx Unsteady Gait: Yes (WALKER,WHEELCHAIR) - Gastrointestinal Hx Gastrointestinal Disorders: Yes (OBESITY) - Genitourinary/Gynecological Hx Genitourinary Disorders: Yes (HYSTERECTOMY-LARGE TUMOR FD.) Hx Incontinence: Yes - Psychiatric Hx Psychophysiologic Disorder: No Hx Substance Use: No - Surgical History Hx Hysterectomy: Yes Other/Comment: Fibroid Tumor removed - Anesthesia Hx Anesthesia Reactions: No Hx Malignant Hyperthermia: No Family/Social History - Physician Review Nursing Documentation Reviewed: Yes Family/Social History: No Known Family HX Smoking Status: Never Smoked Hx Alcohol Use: No Hx Substance Use: No Allergies/Home Meds Allergies/Adverse Reactions: Allergies No Known Allergies Allergy (Verified 03/17/17 20:52) Home Medications: Home Meds Medication Instructions Recorded Confirmed Hydrochlorothiazide [Microzide] 25 mg PO DAILY 05/26/17 05/26/17 Meloxicam [Mobic] 7.5 mg PO DAILY 05/26/17 05/26/17 Ondansetron HCl [Zofran] 4 mg PO TID PRN 05/26/17 05/26/17 Tramadol HCl [Ultram] 50 mg PO TID 05/26/17 05/26/17 Review of Systems - Physician Review All systems were reviewed & negative as marked: Yes - Review of Systems Respiratory: SOB (worsens with ambulating) Cardiovascular: Chest Pain Gastrointestinal: Abdominal Pain, Nausea, Other ("gas pains" as described by patient) Neurological: absent: Headache Physical Exam Vital Signs Reviewed: Yes Vital Signs Temp Pulse Resp BP Pulse Ox 05/26/17 16:07 97.8 F 115 H 18 131/79 96 Temperature: Afebrile Blood Pressure: Normal Pulse: Tachycardic Respiratory Rate: Normal Appearance: Positive for: Well-Appearing Pain Distress: None Mental Status: Positive for: Alert and Oriented X 3 - Systems Exam Head: Present: Atraumatic, Normocephalic Pupils: Present: PERRL Conjunctiva: Present: Normal Mouth: Present: Moist Mucous Membranes Pharnyx: Present: Normal. No: ERYTHEMA, EXUDATE Neck: Present: Normal Range of Motion Respiratory/Chest: Present: Clear to Auscultation, Good Air Exchange. No: Respiratory Distress, Accessory Muscle Use Cardiovascular: Present: Normal S1, S2, Tachycardic. No: Murmurs Abdomen: Present: Normal Bowel Sounds. No: Tenderness, Distention, Peritoneal Signs Back: Present: Normal Inspection Upper Extremity: Present: Normal Inspection. No: Cyanosis, Edema Lower Extremity: Present: Edema Neurological: Present: GCS=15, CN II-XII Intact, Speech Normal Skin: Present: Warm, Dry, Normal Color. No: Rashes Psychiatric: Present: Alert, Oriented x 3, Normal Insight, Normal Concentration Medical Decision Making ED Course and Treatment: 05/26/17 16:38 Impression: 72 year old female with leg problem, chest pain, and abdominal pain. Physical exam shows mild tenderness of abdomen. Plan: -- EKG -- Abd/Pelvis CT -- Chest X-ray -- Lower Extremity Ultrasound -- NM Lung Perfusion and Ventilation Scan -- Labs -- Zofran -- Protonix -- IV Fluids -- Urinalysis -- Reassess and disposition Prior Visits: Notes and results from previous visits were reviewed. Patient was last seen in the emergency department on 03/17/2017 for bilateral edema pain of her feet. Patient was admitted. Progress Notes: EKG: sinus tachycardia @ 112; borderline left axis deviation; normal intervals; normal axis. 05/26/2017 17:15 Chest X-ray IMPRESSION: No active pulmonary disease. Dictator: Destiney Jones MD 05/26/17 18:46 EBT is negative. 05/26/2017 20:35 NM Lung Perfusion and Ventilation Scan IMPRESSION: No findings to suggest pulmonary embolism. Dictator: Xavier Lloyd MD 05/26/2017 21:19 Abd/Pelvis CT IMPRESSION: No acute solid visceral or bowl abnormality, no bowl obstruction; hysterectomy; hepatic and renal cysts. Dictator: Katty Sequeira MD 05/26/17 21:37 Patient with noted history. Labs are remarkable for elevated BUN/Cr, significantly changed from baseline - will need hydration. CT a/p is nondiagnostic - will admit to Dr. Mackay's service as discussed with him for workup and treatment of renal failure. Will place on tele for chest pain. - Lab Interpretations Lab Results: 05/26/17 16:55 05/26/17 16:55 Lab Results 05/26/17 19:25: Urine Color Yellow, Urine Appearance Clear, Urine pH 5.5, Ur Specific [place] 1.010, Urine Protein Negative, Urine Glucose (UA) Negative, Urine Ketones Negative, Urine Blood Trace-lysed H, Urine Nitrate Negative, Urine Bilirubin Negative, Urine Urobilinogen 0.2, Ur Leukocyte Esterase Negative , Urine RBC Negative, Urine WBC Negative, Ur Epithelial Cells 3 - 4, Urine Bacteria Few 05/26/17 16:55: Sodium 137, Potassium 3.6, Chloride 86 L, Carbon Dioxide 33, Anion Gap 22 H, BUN 77 H, Creatinine 2.7 H, Est GFR ( Amer) 21, Est GFR ( Non-Af Amer) 17, Random Glucose 149 H, Calcium 10.4, Magnesium 2.4 H, Total Bilirubin 0.7, Direct Bilirubin 0.6 H, AST 32, ALT 30, Alkaline Phosphatase 137 H, Lactate Dehydrogenase 582, Total Creatine Kinase 64, Troponin I < 0.01, NT- Pro-B Natriuret Pep 430, Total Protein 8.4 H, Albumin 4.9 H, Globulin 3.5, Albumin/Globulin Ratio 1.4, Lipase 209 05/26/17 16:55: PT 11.0, INR 1.02, APTT 24.9, D-Dimer, Quantitative 1.51 H 05/26/17 16:55: WBC 14.3 H D, RBC 4.67, Hgb 13.9, Hct 40.2, MCV 86.1, MCH 29.8, MCHC 34.6, RDW 14.1, Plt Count 310, MPV 11.7 H, Gran % 74.2 H, Lymph % (Auto) 18.0 L, [place] % (Auto) 6.9 H, Eos % (Auto) 0.6 L, Baso % (Auto) 0.3, Gran # 10.57 H, Lymph # 2.6, [place] # 1.0 H, Eos # 0.1, Baso # 0.04 I have reviewed the lab results: Yes - RAD Interpretation Radiology Orders: 05/26/17 16:43 CHEST PORTABLE [RAD] Stat DUPLEX LOWER EXTRM VEIN BILAT [US] Stat 05/26/17 17:26 LUNG PERF & VENT SCAN [NM] Stat 05/26/17 17:27 ABD & PELVIS PO CONTRAST ONLY [CT] Stat - Medication Orders Current Medication Orders: Sodium Chloride (Sodium Chloride 0.9%) 500 mls @ 100 mls/hr IV .Q5H STA Stop: 05/26/17 21:44 Last Admin: 05/26/17 16:59 Dose: 100 mls/hr eMAR Start Stop Document 05/26/17 16:59 SRE (Rec: 05/26/17 17:00 SRE [id number]) Intravenous Solution Start Date 05/26/17 Start Time 17:00 End Date 05/26/17 End time 22:00 Total Infusion Time 300 Sodium Chloride (Sodium Chloride 0.9%) 1,000 mls @ 75 mls/hr IV .[id number] STA Stop: 05/27/17 10:45 Discontinued Medications Ondansetron HCl (Zofran Inj) 4 mg IVP STAT STA Stop: 10/04/17 16:45 Last Admin: 05/26/17 17:02 Dose: 4 mg IVP Administration Document 05/26/17 17:02 SRE (Rec: 05/26/17 17:02 SRE [id number]) Charges for Administration # of IVP Administrations 1 Pantoprazole Sodium (Protonix Inj) 40 mg IVP ONCE STA Stop: 05/26/17 16:45 Last Admin: 05/26/17 17:02 Dose: 40 mg IVP Administration Document 05/26/17 17:02 SRE (Rec: 05/26/17 17:02 SRE [id number]) Charges for Administration # of IVP Administrations 1 - Scribe Statement The provider has reviewed the documentation as recorded by the Suzan Queen Provider Scribe Attestation: All medical record entries made by the Scribe were at my direction and personally dictated by me. I have reviewed the chart and agree that the record accurately reflects my personal performance of the history, physical exam, medical decision making, and the department course for this patient. I have also personally directed, reviewed, and agree with the discharge instructions and disposition. Disposition/Present on Arrival - Present on Arrival Any Indicators Present on Arrival: No History of DVT/PE: No History of Uncontrolled Diabetes: No Urinary Catheter: No History of Decub. Ulcer: No History Surgical Site Infection Following: None - Disposition Have Diagnosis and Disposition been Completed?: Yes Diagnosis: Chest pain, Renal insufficiency Disposition: HOSPITALIZED Disposition Time: 21:20 Patient Plan: Admission, Telemetry Condition: FAIR Discharge Instructions (ExitCare): Chest Pain (ED) Referrals: Lucho Mackay DO [Primary Care Provider] - Follow up with primary Forms: [employer] (Hebrew)
[2017-05-26 17:12] LABS: BASO # 0.04 K/mm3 (0.0-2.0); BASO % 0.3 % (0.0-3.0); EOS # 0.1 (0.0-0.7); EOS % 0.6 % (1.5-5.0); GRAN # 10.57 (1.4-6.5); GRAN % 74.2 % (50.0-68.0); HEMATOCRIT 40.2 % (36.0-48.0); LYMPH # 2.6 (1.2-3.4); MEAN CELL VOLUME 86.1 fl (80.0-105.0); MEAN CORPUSCULAR HEMOGLOBIN 29.8 pg (25.0-35.0); MEAN CORPUSCULAR HGB CONC 34.6 g/dl (31.0-37.0); MEAN PLATELET VOLUME 11.7 fl (7.0-11.0); MONO % 6.9 % (1.0-6.0); RED CELL DISTRIBUTION WIDTH 14.1 % (11.5-14.5); WHITE BLOOD COUNT 14.3 10^3/ul (4.5-11.0)
[2017-05-26 17:17] LABS: ALB/GLOB RATIO 1.4 (1.1-1.8); ALKALINE PHOSPHATASE 137 U/L (38-126); ALT/SGPT 30 U/L (7-56); AST/SGOT 32 U/L (14-36); BILIRUBIN,TOTAL 0.7 mg/dL (0.2-1.3); BLOOD UREA NITROGEN 77 mg/dL (7-21); CALCIUM 10.4 mg/dL (8.4-10.5); CARBON DIOXIDE 33 mmol/L (21-33); CHLORIDE 86 mmol/L (98-107); GFR AFRICAN-AMERICAN 21; GLUCOSE,RANDOM 149 mg/dL (70-110); LIPASE 209 U/L (23-300); MAGNESIUM 2.4 mg/dL (1.7-2.2); SODIUM 137 mmol/L (132-148); TOTAL PROTEIN 8.4 g/dL (5.8-8.3)
--- NOTE | 2017-05-26 17:17 | RAD ---
HISTORY: Shortness of breath COMPARISON: 03/17/2017 FINDINGS: LUNGS: The lungs are well inflated and clear. PLEURA: No significant pleural effusion identified, no pneumothorax apparent. CARDIOVASCULAR: Normal. OSSEOUS STRUCTURES: No significant abnormalities. VISUALIZED UPPER ABDOMEN: Normal. OTHER FINDINGS: None. IMPRESSION: No active pulmonary disease.
[2017-05-26 17:20] LABS: BILIRUBIN,DIRECT 0.6 mg/dL (0.0-0.4); INR 1.02 (0.93-1.08); PARTIAL THROMBOPLASTIN TIME 24.9 Seconds (23.7-30.8); POTASSIUM 3.6 mmol/L (3.6-5.0)
[2017-05-26 17:21] LABS: D DIMER 1.51 mg/L FEU (0-0.50)
[2017-05-26 17:29] LABS: TROPONIN I < 0.01 ng/mL
[2017-05-26] MEDS ORDERED: Iohexol 240 (50 ml) ONE (17:39)
[2017-05-26 19:39] LABS: PH,URINE 5.5 (4.7-8.0); URINE BILIRUBIN NEGATIVE (NEGATIVE); URINE BLOOD TRACE-LYSED (NEGATIVE); URINE GLUCOSE (UA) NEGATIVE (NEGATIVE); URINE KETONE NEGATIVE (NEGATIVE); URINE LEUKOCYTE ESTERASE NEGATIVE Leu/uL (NEGATIVE); URINE PROTEIN NEGATIVE mg/dL (<30 mg/dL); URINE UROBILINOGEN 0.2 E.U./dL (<1 E.U./dL)
[2017-05-26 19:40] LABS: URINE APPEARANCE CLEAR (CLEAR); URINE COLOR YELLOW (YELLOW)
[2017-05-26 19:47] LABS: URINE BACTERIA FEW (NEG); URINE RBC NEGATIVE /hpf (0-2); URINE WBC NEGATIVE /hpf (0-6)
--- NOTE | 2017-05-26 21:20 | CT ---
EXAM: CT Abdomen and Pelvis Without Intravenous Contrast EXAM DATE/TIME: 05/26/2017 5:27 PM CLINICAL HISTORY: 72 years old, female; Pain; Abdominal pain; Generalized; Prior surgery; Surgery date: 6+ months; Surgery type: Hysterectomy; Additional info: Abd pain - R/O obstruction TECHNIQUE: Axial computed tomography images of the abdomen and pelvis without intravenous contrast. All CT scans at this facility use one or more dose reduction techniques, viz.: automated exposure control; ma/kV adjustment per patient size (including targeted exams where dose is matched to indication; i.e. head); or iterative reconstruction technique. Coronal and sagittal reformatted images were created and reviewed. COMPARISON: There are no prior studies for comparison. FINDINGS: Lower thorax: Heart size is normal. There is no pericardial effusion. Lung bases are clear ABDOMEN: Liver: There is a cyst in the liver. Gallbladder and bile ducts: unremarkable Pancreas: Pancreas is atrophic. Spleen: Spleen is unremarkable. There is an accessory spleen in the left upper quadrant. Adrenals: unremarkable Kidneys and ureters: There are right renal cysts. There is minimal bilateral renal scarring. There are tiny nonobstructing renal stones.Kidneys and ureters are otherwise unremarkable. Stomach and bowel: Stomach is almost empty. Rotation is normal. There is no obstruction. Terminal ileum is unremarkable.Appendix is not visualized.There is no pericecal inflammation.Colon is incompletely distended which limits evaluation. There is scattered diverticulosis Appendix: See above. PELVIS: Bladder: unremarkable Reproductive: Uterus is absent. There are no adnexal masses. ABDOMEN and PELVIS: Intraperitoneal space: There is no free air or free fluid. Bones/joints: Bony structures are osteopenic. There extensive degenerative changes of both hips. There are degenerative changes in the spine. There is a mild pectus excavatum deformity. Soft tissues: There is a small fat containing umbilical hernia. Vasculature: There are phleboliths. Lymph nodes: There is no pathologic adenopathy. IMPRESSION: No acute solid visceral or bowel abnormality, no bowel obstruction; hysterectomy; hepatic and renal cysts Additional findings as described above.
[2017-05-26] MEDS ORDERED: Sodium Chloride 0.9% 1,000 ML IV STA (21:26)
--- NOTE | 2017-05-26 22:26 | US ---
HISTORY: Leg pain and swelling. Evaluate for DVT PHYSICIAN(S): Kendall Summers MD. TECHNIQUE: Duplex sonography and color-flow Doppler with graded compression were used to evaluate the deep venous systems of both lower extremities. The exam is limited by body habitus and edema FINDINGS: The visualized deep venous systems of both lower extremities are sonographically normal and compressible. Normal wave forms and augmentation are seen. There is no sonographic evidence for deep venous thrombosis in the visualized segments of both lower extremities. IMPRESSION: No sonographic evidence for deep venous thrombosis in the visualized segments of both lower extremities.
--- NOTE | 2017-05-27 00:24 | CARD ---
APPROVED REPORT EKG Measurement Heart [id number] <Conclusion> Sinus tachycardia Otherwise normal ECG
[2017-05-27 01:12] LABS: TROPONIN I 0.03 ng/mL
[2017-05-27 09:02] LABS: HEMATOCRIT 34.3 % (36.0-48.0); MEAN CORPUSCULAR HEMOGLOBIN 29.1 pg (25.0-35.0); MEAN CORPUSCULAR HGB CONC 33.8 g/dl (31.0-37.0); MEAN PLATELET VOLUME 10.8 fl (7.0-11.0); WHITE BLOOD COUNT 11.9 10^3/ul (4.5-11.0)
[2017-05-27 09:19] LABS: CALCIUM 9.2 mg/dL (8.4-10.5); MAGNESIUM 2.1 mg/dL (1.7-2.2)
--- NOTE | 2017-05-27 09:23 | NM ---
COMPARISON: Chest x-ray 05/26/2017 TECHNIQUE: 35.0 mCi technetium 99-m DTPA aerosol. 4.0 mCI technetium 99-m MAA administered intravenously. FINDINGS: VENTILATION COMPONENT: Normal. PERFUSION COMPONENT: Normal. The report concurs with the preliminary [facility] report IMPRESSION: Lowprobability ventilation perfusion scan for pulmonary embolism.
[2017-05-27 09:31] LABS: POTASSIUM 2.9 mmol/L (3.6-5.0)
[2017-05-27] MEDS: cefTRIAXone 1 gm 1 GM/100 ML BAG IVPB SCH (09:32)
[2017-05-27] MEDS ORDERED: Potassium Chloride 20 mEq ER Tab PO ONE (09:39)
--- NOTE | 2017-05-27 10:17 | HP ---
HISTORY OF PRESENT ILLNESS: I know the patient very well for years, doing house calls on her. She has been calling me this past week about not feeling well, some stomach upset and I tried to have her drink more water. Also, she has been some nauseousness and she had some Zofran to take and apparently it did not work and here she is in the emergency room not feeling well. She is a 72-year-old female, presented to the emergency department with chest pain, abdominal pain, nauseousness, also gas pains and she failed outpatient treatment for this, and also, she did not want to go to the emergency room. She is also having problems ambulating. She did go to physical therapy subacute rehab recently and she has lost some of her strength. PAST MEDICAL HISTORY: Hypertension, diabetes, spinal stenosis, incontinence. Has a history of pneumonia in the past, neuropathy, falls. She walks with a wheelchair, may be a walker to transition from a bed to a wheelchair. She is obese. She has a hysterectomy and a large tumor. She has incontinence. Fibroid tumor was removed. FAMILY HISTORY: Hypertension in the family. SOCIAL HISTORY: Never smoked, no drugs, no alcohol. ALLERGIES: NO KNOWN DRUG ALLERGIES. MEDICATIONS: She takes Microzide, Mobic, Zofran and Ultram as needed. REVIEW OF SYSTEMS: No acute vision changes or hearing changes. No sore throat, no neck pain. There is a little bit of chest pain. No pressure, maybe it is more indigestion. No shortness of breath or cough. Has abdominal pain, nauseousness, gas. Extremities just weak, difficult for her to walk and stand now. No headaches, no nervousness, no sweating. PHYSICAL EXAMINATION VITAL SIGNS: She has a 97.8 temperature, 115 pulse, 18 respiratory rate, 131/79 blood pressure, 96% O2 sat on room air. HEENT: Head is atraumatic and normocephalic. Extraocular muscles are intact. Pupils are equally reactive to light and accommodation. Throat is dry. NECK: Supple. HEART: Regular rate. Normal S1 and S2. LUNGS: Decreased breath sounds bilaterally with poor effort. ABDOMEN: Soft. Mildly distended with gas, nontender. Positive bowel sounds. No guarding, no rebound, no CVA tenderness. EXTREMITIES: Has +1/4 pitting edema bilaterally. NEUROLOGIC: She has a GCS of 15. Cranial nerves II through XII grossly intact. Speech is normal. SKIN: Warm and dry. No rashes or ulcers. NODES: Thyroid is midline. No palpable or appreciable lymphadenopathy. She had lot of tests done. She has 14.3 white count, 13.9 hemoglobin, 40.2 hematocrit with a 310 platelets. INR is 1.02. The D-dimer was elevated at 1.51. Has 137 sodium, potassium is 3.6, BUN is 77, creatinine is 2.7 and it is very high for her. She is usually much lower. She seems very dry with a GFR of 17. Sugar is 149, calcium is 10.4, magnesium is 2.4, total bilirubin is 0.78, direct bili is 0.6, AST is 32, ALT is 30, alkaline phosphatase 137. Lactate dehydrogenase is 427. The troponin is less than 0.01 and 0.03 and the BMP is 430. Total protein is 8.4, lipase is 209. Urine is trace. She had a CAT scan of the abdomen and pelvis, also pending nuclear lung scan. No solid acute visceral abnormal bowel abnormality. No bowel obstruction. Chest x-ray with no active disease. She will have a consult with GI, infectious disease, renal and cardio, checking her troponin. She will be on Protonix IV, IV fluids, Ultram for pain, Xanax at night, Zofran, Rocephin. She is here for a few things; abdominal pain, gastritis. Also, renal failure which is acute to her, that is new and she is weak. She might need subacute rehab and then chest pain, the first 2 troponins were okay. Lucho Mackay DO
--- NOTE | 2017-05-27 10:37 | CON ---
CARDIOLOGY CONSULTATION DATE: 05/27/2017 HISTORY OF PRESENT ILLNESS: The patient is a 72-year-old woman who presents with epigastric discomfort including nausea. The patient is wheelchair-bound and has denied angina. There is no previous cardiac history. The patient's cardiac risk factors includes hypertension, diabetes. SOCIAL HISTORY: The patient does not drink, does not smoke. REVIEW OF SYSTEMS: A 14-point review of systems was reviewed in detail. No angina. Occasional shortness of breath. The patient is wheelchair-bound. OBJECTIVE: GENERAL: She complains of chronic weakness of the lower extremities. VITAL SIGNS: On physical exam; blood pressure is 139/63, heart rates in the 70s. NECK: Negative JVD. LUNGS: Lungs without rales. HEART: S1, S2. EXTREMITIES: Without edema. LABORATORY DATA: EKG shows sinus tachycardia with nonspecific ST-T changes. Troponins are negative x2. BUN and creatinine 77/2.7 with a hemoglobin of 13.9. IMPRESSION: 1. Abdominal pain. 2. Prerenal azotemia on top of #3. 3. History of renal insufficiency. 4. Diabetes mellitus. 5. Hypertension. 6. Chronic weakness of the lower extremities. PLAN: Given these findings, the patient will need IV hydration. Her LV function on an echocardiogram in February 2017 revealed good LV function. Kendall Shelley MD
--- NOTE | 2017-05-27 11:14 | CP.PCM.CON ---
History of Present Illness - History of Present Illness History of Present Illness: Initial Nephrology Consultation: Assessment: Stable Acute Kidney Injury (N17.9) likely due to dehydration, pre-renal state, some contribution by NSAIDs CKD stage 3, likely HTN kidney disease Obesity HTN (I12.9) Hypokalemia Anemia Plan No acute need for renal replacement therapy at this time. start NS at 100 ml/hr supplement KCL 40 meq today Hypertension controlled without meds. hold diuretics Monitor Input/Output, daily weights and renal function with basic metabolic panel Check urine studies, Vit D/PTH, anemia work up Stop Mobic. Dose meds/antibiotics for reduced GFR. Avoid fleets enema/magnesium based laxatives. Avoid nephrotoxins/NSAIDs/ iodinated contrast (unless needed emergently) Glycemic control Further work up/management as per primary team Thanks for allowing me to participate in care of your patient. Will follow patient with you. Please call if any Qs Dr Rudy Rivera Office: [phone] Chief Complaint; abdomen Cramps HPI: Pt is a 72 y/o F with hx of hypertension ( since teenage), obesity, CKD 3 (cr 1.5) and leg swelling which was being managed with diuretics, recent rehab and she was managing her joint pain with Mobic which she stopped 2 days ago presented with complaints of abdomen cramps for last 4-5 days. also had decreased oral intake. also with elevated cr and TA. no prior hx of renal disease known to patient Denies chest pain, palpitation, shortness of breath, leg swelling Denies blood or bubbles in urine Denies OTC/herbal meds or NSAIDs now. was taking mobic until 2 days ago No recent iodinated contrast exposure. No obvious episodes of low BP. ROS: Constitutional Symptoms: Denies fever. No chills. had lost 10 lbs recently Eyes: denies change in vision, denies watery eyes, denies double vision Ears/Nose/Mouth/Throat: Denies Abnormal Taste. No Bad breath no Bad Taste. Cardiovascular: No chest pain. There is no shortness of breath. No palpitations. Pulmonary: No shortness of breath no cough. Gastrointestinal: c/o mild abdominal pain/cramps c/o nausea. No vomiting. Denies change in bowel habits. Denies Bleeding Genitourinary: No Change in force of strain when urinating. no change in urinary frequency. No pain while urinating. Denies blood in urine. Neurological: Denies headaches. No dizziness. Denies loss of balance. Denies weakness, denies tingling/numbness Dermatological: No Rash or Bruising or ulcers. Psychiatric: Denies Anxiety. No depression. Denies hallucinations. Rheumatological: c/o hip joint pain. Denies Joint swelling Endocrine: Denies tiredness/Fatigue denies Heat/Cold Intolerance now All other negative Physical Examination: General Appearance: Comfortable, in no acute respiratory distress, co-operative .obese Vitals reviewed and noted as below Head; Atraumatic, normocephalic ENT: no ulcers no thrush. Tongue is midline. Oropharynx: no rash or ulcers. EYES: Pupils are equal, round and reactive to light accommodation. Eye muscles and extraocular movement intact. Sclera is anicteric. Neck; supple no lymphadenopathy, no thyromegaly or bruit Lungs: Normal respiratory rate/effort. Breath sounds bilateral equal and clear Heart: Normal rate. s1s2 normal. No rub or gallop. Extremities: no edema. No varicose veins Neurological: Patient is alert, awake and oriented to person, place and time. No focal deficit. Strength bilateral appropriate and equal Skin: Warm and dry. Normal turgor. No rash. Palpitation: Normal elasticity for age Abdomen: Abdomen is soft. Bowel sounds +. There is no abdominal tenderness, no guarding/rigidity no organomegaly Psych: normal insight and normal affect/mood MSK: no joint tenderness or swelling. Digits and nails normal, no deformity : kidney or bladder not palpable Labs/imaging/EKG reviewed. Past medical history, past surgical history, family history, social history, allergy reviewed and noted as below Family hx: no hx of CKD. Rest non-contributory Past Patient History - Infectious Disease Hx of Infectious Diseases: None - Past Social History Smoking Status: Never Smoked - CARDIAC Hx Hypertension: Yes Hx Peripheral Edema: Yes - PULMONARY Hx Pneumonia: Yes - NEUROLOGICAL Hx Neurological Disorder: No - HEENT Hx HEENT Problems: Yes (Glasses) - RENAL Hx Chronic Kidney Disease: No - ENDOCRINE/METABOLIC Hx Diabetes Mellitus Type 2: Yes - HEMATOLOGICAL/ONCOLOGICAL Hx Blood Disorders: No - INTEGUMENTARY Hx Psoriasis: Yes - MUSCULOSKELETAL/RHEUMATOLOGICAL Hx Falls: Yes Hx Spinal Stenosis: Yes - GASTROINTESTINAL Hx Gastrointestinal Disorders: Yes (OBESITY) - GENITOURINARY/GYNECOLOGICAL Hx Genitourinary Disorders: No - PSYCHIATRIC Hx Psychophysiologic Disorder: No - SURGICAL HISTORY Hx Hysterectomy: Yes - ANESTHESIA Hx Anesthesia Reactions: No Hx Malignant Hyperthermia: No Meds Allergies/Adverse Reactions: Allergies Allergy/AdvReac Type Severity Reaction Status Date / Time No Known Allergies Allergy Verified 03/17/17 20:52 - Medications Medications: Current Medications Alprazolam (Xanax) 0.25 mg PO HS WALT PRN Reason: Protocol Stop: 06/03/17 22:01 Pantoprazole Sodium (Protonix 40mg Ivpb) 40 mg in 100 mls @ 200 mls/hr IVPB 0600 WALT Ceftriaxone Sodium (Rocephin 1 Gram Ivpb) 1 gm in 100 mls @ 100 mls/hr IVPB DAILY WALT PRN Reason: Protocol Last Admin: 05/27/17 09:32 Dose: 100 mls/hr Sodium Chloride (Sodium Chloride 0.9%) 1,000 mls @ 100 mls/hr IV .Q10H WALT Ondansetron HCl (Zofran Inj) 4 mg IVP Q4H PRN PRN Reason: Nausea/Vomiting Tramadol HCl (Ultram) 50 mg PO TID WALT Last Admin: 05/27/17 09:29 Dose: 50 mg Results - Vital Signs Recent Vital Signs: Last Vital Signs Temp 97.4 F L 05/27/17 05:51 Pulse 95 H 05/27/17 10:00 Resp 20 05/27/17 05:51 BP 139/63 05/27/17 05:51 Pulse Ox 98 05/27/17 05:51 - Labs Result Diagrams: 05/27/17 08:50 05/27/17 08:50 Labs: Laboratory Results - last 24 hr 05/27/17 05/27/17 05/27/17 00:15 08:50 08:50 WBC 11.9 H RBC 3.99 Hgb 11.6 L D Hct 34.3 L MCV 86.0 MCH 29.1 MCHC 33.8 RDW 14.0 Plt Count 226 MPV 10.8 Sodium 134 Potassium 2.9 L* Chloride 89 L Carbon Dioxide 33 Anion Gap 15 BUN 64 H Creatinine 2.3 H Est GFR ( Amer) 25 Est GFR (Non-Af Amer) 21 Random Glucose 176 H Calcium 9.2 Magnesium 2.1 Lactate Dehydrogenase 427 Total Creatine Kinase 112 Troponin I 0.03 D
[2017-05-27 12:27] LABS: IRON 37 ug/dL (45-180)
[2017-05-27] MEDS: Sodium Chloride 0.9% 1,000 ML IV SCH ×2 (13:28→21:47)
--- NOTE | 2017-05-27 15:21 | CP.PCM.CON ---
<Main Hendrix - Last Filed: 05/27/17 15:36> History of Present Illness - History of Present Illness History of Present Illness: PGY4 Initial GI Consult Sara Melara is a 72F w/ hx of HTN, obesity, CKD who presents to the Er with complaints of lower abd pain. Pt states that the onset of her abd pain was 2 days ago. She states that the pain is located in RLQ and LLQ. She describes it as crampy and graded it a 10 out of 10. Denies any aggravating factors or alleviating factors, She notes that she previously used to have diarrhea which progressed to constipation once she initiated using pain meds. She states that she tried a stool softer once without any improvement. She states that she has about 1-2 BM weekly. Pt states that her stools are "hard as rocks". Her last BM was today and states it was a small amount. Her pain currently in minimal and she is tolerating her diet. She denies any vomiting, but states that she had nausea yesterday. She denies any melena, BRBPR, hematemesis, or coffee-ground emesis. PMHx: CKD stage 3, likely HTN kidney disease, Obesity, HTN (I12.9), Hypokalemia , Anemia PSHx: hysterectomy? Social hx: Denies smoking, drinking, or illicit drugs Family hx: denies as per pt ROS: 12 point ROS conducted, neg other than above Past Patient History - Infectious Disease Hx of Infectious Diseases: None - Past Social History Smoking Status: Never Smoked - CARDIAC Hx Hypertension: Yes Hx Peripheral Edema: Yes - PULMONARY Hx Pneumonia: Yes - NEUROLOGICAL Hx Neurological Disorder: No - HEENT Hx HEENT Problems: Yes (Glasses) - RENAL Hx Chronic Kidney Disease: No - ENDOCRINE/METABOLIC Hx Diabetes Mellitus Type 2: Yes - HEMATOLOGICAL/ONCOLOGICAL Hx Blood Disorders: No - INTEGUMENTARY Hx Psoriasis: Yes - MUSCULOSKELETAL/RHEUMATOLOGICAL Hx Falls: Yes Hx Spinal Stenosis: Yes - GASTROINTESTINAL Hx Gastrointestinal Disorders: Yes (OBESITY) - GENITOURINARY/GYNECOLOGICAL Hx Genitourinary Disorders: No - PSYCHIATRIC Hx Psychophysiologic Disorder: No - SURGICAL HISTORY Hx Hysterectomy: Yes - ANESTHESIA Hx Anesthesia Reactions: No Hx Malignant Hyperthermia: No Meds Allergies/Adverse Reactions: Allergies Allergy/AdvReac Type Severity Reaction Status Date / Time No Known Allergies Allergy Verified 03/17/17 20:52 - Medications Medications: Current Medications Alprazolam (Xanax) 0.25 mg PO HS PENDING SALE TO [facility] PRN Reason: Protocol Stop: 06/03/17 22:01 Pantoprazole Sodium (Protonix 40mg Ivpb) 40 mg in 100 mls @ 200 mls/hr IVPB 0600 PENDING SALE TO [facility] Ceftriaxone Sodium (Rocephin 1 Gram Ivpb) 1 gm in 100 mls @ 100 mls/hr IVPB DAILY WALT PRN Reason: Protocol Last Admin: 05/27/17 09:32 Dose: 100 mls/hr Sodium Chloride (Sodium Chloride 0.9%) 1,000 mls @ 100 mls/hr IV .Q10H PENDING SALE TO [facility] Last Admin: 05/27/17 13:28 Dose: 100 mls/hr Ondansetron HCl (Zofran Inj) 4 mg IVP Q4H PRN PRN Reason: Nausea/Vomiting Tramadol HCl (Ultram) 50 mg PO TID PENDING S[facility] TO [facility] Last Admin: 05/27/17 14:21 Dose: Not Given Physical Exam - Constitutional Appears: Well, No Acute Distress - Head Exam Head Exam: ATRAUMATIC, NORMOCEPHALIC - Eye Exam Eye Exam: Normal appearance - ENT Exam ENT Exam: Mucous Membranes Moist, Normal Exam - Respiratory Exam Respiratory Exam: Clear to Auscultation Bilateral, NORMAL BREATHING PATTERN. absent: Rales, Rhonchi, Wheezes, Respiratory Distress - Cardiovascular Exam Cardiovascular Exam: REGULAR RHYTHM, +S1, +S2 - GI/Abdominal Exam GI & Abdominal Exam: Normal Bowel Sounds, Soft. absent: Distended, Firm, Guarding, Rebound, Rigid, Tenderness - Extremities Exam Extremities exam: Positive for: pedal edema. Negative for: joint swelling, tenderness - Neurological Exam Neurological exam: Alert, Oriented x3 - Psychiatric Exam Psychiatric exam: Normal Affect, Normal Mood - Skin Skin Exam: Dry, Intact, Normal Color, Warm Results - Vital Signs Recent Vital Signs: Last Vital Signs Temp 98.4 F 05/27/17 12:00 Pulse 100 H 05/27/17 14:00 Resp 20 05/27/17 12:00 BP 132/72 05/27/17 12:00 Pulse Ox 98 05/27/17 05:51 - Labs Result Diagrams: 05/27/17 08:50 05/27/17 08:50 Labs: Laboratory Results - last 24 hr 05/27/17 05/27/17 05/27/17 00:15 08:50 08:50 WBC 11.9 H RBC 3.99 Hgb 11.6 L D Hct 34.3 L MCV 86.0 MCH 29.1 MCHC 33.8 RDW 14.0 Plt Count 226 MPV 10.8 Sodium 134 Potassium 2.9 L* Chloride 89 L Carbon Dioxide 33 Anion Gap 15 BUN 64 H Creatinine 2.3 H Est GFR ( Amer) 25 Est GFR (Non-Af Amer) 21 Random Glucose 176 H Calcium 9.2 Magnesium 2.1 Iron TIBC % Saturation Lactate Dehydrogenase 427 Total Creatine Kinase 112 Troponin I 0.03 D 05/27/17 Unknown WBC RBC Hgb Hct MCV MCH MCHC RDW Plt Count MPV Sodium Potassium Chloride Carbon Dioxide Anion Gap BUN Creatinine Est GFR ( Amer) Est GFR (Non-Af Amer) Random Glucose Calcium Magnesium Iron 37 L TIBC 261 L % Saturation 14 L Lactate Dehydrogenase Total Creatine Kinase Troponin I Assessment & Plan - Assessment and Plan (Free Text) Assessment: Sara Melara is a 72 F w/ hx of HTN, CKD, and anemia who presents with abd pain. Etiology is likely 2/2 constipation. 1. Abd pain 2. Constipation 3. Bloating/dyspepsia Plan: -will start on miralax BID -continue miralax daily to BID at home -advance diet as tolerated -important to stay on bowel regiment while taking narcotics -exercise as tolerated -recommend weight loss -increase fiber intake and water intake -recommend pt undergo colonoscopy and EGD as an oupt -follow-up in 2-4 weeks -start PPI daily -will sign off -please reconsult if needed D/W Dr. Jordan and agrees with the above <Danny Jordan - Last Filed: 05/27/17 19:23> Meds - Medications Medications: Current Medications Alprazolam (Xanax) 0.25 mg PO HS WALT PRN Reason: Protocol Stop: 06/03/17 22:01 Pantoprazole Sodium (Protonix 40mg Ivpb) 40 mg in 100 mls @ 200 mls/hr IVPB 0600 WALT Ceftriaxone Sodium (Rocephin 1 Gram Ivpb) 1 gm in 100 mls @ 100 mls/hr IVPB DAILY WALT PRN Reason: Protocol Last Admin: 05/27/17 09:32 Dose: 100 mls/hr Sodium Chloride (Sodium Chloride 0.9%) 1,000 mls @ 100 mls/hr IV .Q10H PENDING SALE TO [facility] Last Admin: 05/27/17 13:28 Dose: 100 mls/hr Ondansetron HCl (Zofran Inj) 4 mg IVP Q4H PRN PRN Reason: Nausea/Vomiting Polyethylene Glycol (Miralax) 17 gm PO BID PENDING SALE TO [facility] Last Admin: 05/27/17 18:42 Dose: 17 gm Sennosides (Senokot Tab) 17.2 mg PO HS PENDING SALE TO [facility] Tramadol HCl (Ultram) 50 mg PO TID PENDING SALE [facility] Last Admin: 05/27/17 18:42 Dose: Not Given Results - Vital Signs Recent Vital Signs: Last Vital Signs Temp 98.4 F 05/27/17 17:25 Pulse 102 H 05/27/17 18:00 Resp 19 05/27/17 17:25 BP 107/44 L 05/27/17 17:25 Pulse Ox 98 05/27/17 05:51 - Labs Result Diagrams: 05/27/17 08:50 05/27/17 08:50 Labs: Laboratory Results - last 24 hr 05/27/17 05/27/17 05/27/17 00:15 08:50 08:50 WBC 11.9 H RBC 3.99 Hgb 11.6 L D Hct 34.3 L MCV 86.0 MCH 29.1 MCHC 33.8 RDW 14.0 Plt Count 226 MPV 10.8 Sodium 134 Potassium 2.9 L* Chloride 89 L Carbon Dioxide 33 Anion Gap 15 BUN 64 H Creatinine 2.3 H Est GFR ( Amer) 25 Est GFR (Non-Af Amer) 21 Random Glucose 176 H Calcium 9.2 Magnesium 2.1 Iron TIBC % Saturation Ferritin Lactate Dehydrogenase 427 Total Creatine Kinase 112 Troponin I 0.03 D 25-OH Vitamin D Total 05/27/17 05/27/17 11:14 Unknown WBC RBC Hgb Hct MCV MCH MCHC RDW Plt Count MPV Sodium Potassium Chloride Carbon Dioxide Anion Gap BUN Creatinine Est GFR ( Amer) Est GFR (Non-Af Amer) Random Glucose Calcium Magnesium Iron 37 L TIBC 261 L % Saturation 14 L Ferritin 252.0 Lactate Dehydrogenase Total Creatine Kinase Troponin I 25-OH Vitamin D Total < 12.8 L Attending/Attestation - Attestation I have personally seen and examined this patient.: Yes I have fully participated in the care of the patient.: Yes I have reviewed all pertinent clinical information: Yes Notes (Text): 05/27/17 19:22 72 year old female who is admitted with abdominal pain. 1. Abdominal pain 2. Chronic constipation Plan: -improved abdominal pain -CT unremarkable -recommend ppi and bowel regimen as above -recommend outpatient egd/colonoscopy
[2017-05-27 16:36] LABS: VITAMIN D 25 OH TOTAL < 12.8 NG/ML (30.0-100.0)
[2017-05-27] MEDS: POLYETHYLENE GLYCOL 3350 17 GM/Dose PACKET PO SCH (18:42)
--- NOTE | 2017-05-27 21:35 | CON ---
DATE: 05/27/2017 CHIEF COMPLAINT: Weakness and abdominal cramps times several days. HISTORY OF PRESENT ILLNESS: This is a 72-year-old female with history of hypertension, diabetes mellitus, spinal stenosis, urinary incontinence and neuropathy, was admitted with epigastric discomfort. In the emergency room, the patient was seen by Dr. Raymond Hilton, who states the patient also has spinal stenosis and complaining of chest pain, abdominal pain, nausea and gas pains in the abdomen. She denied any fevers or any chills. She states that she had nausea and vomiting. No headaches or blurred vision. No neck pain. PAST MEDICAL HISTORY: Significant for hypertension, diabetes, spinal stenosis, urinary incontinence and neuropathy. PAST SURGICAL HISTORY: Significant for hysterectomy. MEDICATIONS AT HOME: Include Ultram, Lasix, Xanax and Microzide. PHYSICAL EXAMINATION: GENERAL: The patient is in bed. VITAL SIGNS: Temperature of 97, blood pressure of 130/70, heart rate of 95 to 100 and respiratory rate of 20. HEENT: Unremarkable. NECK: Supple. LUNGS: Decreased breath sounds. HEART: Normal S1 and S2. ABDOMEN: Soft. Mild tenderness. No rebound or guarding. No masses. LABORATORY EXAMINATION: [place] [address], hemoglobin of 13 and platelets of 310. Coagulation is noted. Chemistry reveals a BUN of 77, creatinine of 2.7, creatinine prior to that, it was 1.5 and alkaline phosphatase is 137. Urinalysis reveals the patient to have urine wbc's negative with trace of blood. Microbiology is pending. The patient had a CAT scan of the abdomen and pelvis, which showed no acute risk for bowel abnormalities, no bowel obstruction, hysterectomy, hepatic or renal cyst. Dr. Kendall Shelley's note is reviewed, consultation. His impression is that the patient has abdominal pain. The patient has an echocardiogram in 02/2017, which showed a good left ventricular function. The patient also had a lung scan which showed low probability for pulmonary embolism and a chest x-ray, which were negative. Also had an ulcer on her lower extremities. No evidence of DVT. The patient has no protein in the urine. ASSESSMENT AND PLAN: This is a 72-year-old female with hypertension, diabetes, spinal stenosis, urinary incontinence, neuropathy and history of hysterectomy, who was admitted with epigastric pain, tachycardia, leukocytosis and a negative CAT scan of the abdomen and negative chest x-ray. 1. Systemic inflammatory response syndrome with possible gastroenteritis with acute kidney injury on top of chronic kidney injury. Creatinine has changed from 1.5 to 2.7. We will treat the patient with ceftriaxone and check on the blood cultures and urine cultures and repeat a urinalysis. We will make further recommendation upon the availability of urinalysis, urine culture and blood cultures. We will start the patient empirically on ceftriaxone and we will follow closely with you. May consider a gastroenterology consult. Since the patient's troponins are negative x2, less likely to be cardiac. The patient had an EKG, which was sinus tachycardia; otherwise, normal EKG. We will follow with you. We will follow with wbc's. Bello Joseph MD
[2017-05-28 04:26] LABS: TOTAL PROTEIN, SERUM 6.4 g/dL (6.1-8.1)
[2017-05-28] MEDS: Pantoprazole 40mg/100ml IVPB 40 MG/100 ML BAG IVPB SCH (05:11)
[2017-05-28 06:23] LABS: HEMATOCRIT 33.8 % (36.0-48.0); MEAN CELL VOLUME 86.9 fl (80.0-105.0); MEAN CORPUSCULAR HEMOGLOBIN 28.8 pg (25.0-35.0); MEAN CORPUSCULAR HGB CONC 33.1 g/dl (31.0-37.0); RED CELL DISTRIBUTION WIDTH 14.4 % (11.5-14.5); WHITE BLOOD COUNT 13.7 10^3/ul (4.5-11.0)
[2017-05-28 06:41] LABS: ALB/GLOB RATIO 1.4 (1.1-1.8); BILIRUBIN,TOTAL 0.8 mg/dL (0.2-1.3); CALCIUM 9.4 mg/dL (8.4-10.5); TOTAL PROTEIN 6.4 g/dL (5.8-8.3)
--- NOTE | 2017-05-28 07:54 | CP.PCM.PN ---
<Main Hendrix - Last Filed: 05/28/17 07:54> Subjective - Date & Time of Evaluation Date of Evaluation: 05/28/17 Time of Evaluation: 07:00 - Subjective Subjective: PGY4 GI Follow-up Pt seen and examined bedside No new complaints ABd improved sig +BM tolerating diet ROS: 10 point ROS conducted, neg other than above Objective - Vital Signs/Intake and Output Vital Signs (last 24 hours): Temp Pulse Resp BP Pulse Ox 98.4 F 105 H 20 107/62 95 05/28/17 06:00 05/28/17 06:00 05/28/17 06:00 05/28/17 06:00 05/28/17 06:00 Intake and Output: 05/28/17 05/28/17 06:59 18:59 Intake Total 3000 Balance 3000 - Medications Medications: Current Medications Alprazolam (Xanax) 0.25 mg PO HS [facility] PRN Reason: Protocol Stop: 06/03/17 22:01 Last Admin: 05/27/17 21:36 Dose: 0.25 mg Pantoprazole Sodium (Protonix 40mg Ivpb) 40 mg in 100 mls @ 200 mls/hr IVPB 0600 [facility] Last Admin: 05/28/17 05:11 Dose: 200 mls/hr Ceftriaxone Sodium (Rocephin 1 Gram Ivpb) 1 gm in 100 mls @ 100 mls/hr IVPB DAILY [facility] PRN Reason: Protocol Last Admin: 05/27/17 09:32 Dose: 100 mls/hr Sodium Chloride (Sodium Chloride 0.9%) 1,000 mls @ 100 mls/hr IV .Q10H [facility] Last Admin: 05/27/17 21:47 Dose: 100 mls/hr Ondansetron HCl (Zofran Inj) 4 mg IVP Q4H PRN PRN Reason: Nausea/Vomiting Polyethylene Glycol (Miralax) 17 gm PO BID [facility] Last Admin: 05/27/17 18:42 Dose: 17 gm Sennosides (Senokot Tab) 17.2 mg PO HS [facility] Last Admin: 05/27/17 21:36 Dose: 17.2 mg Tramadol HCl (Ultram) 50 mg PO TID [facility] Last Admin: 05/28/17 05:07 Dose: 50 mg - Labs Labs: 05/28/17 06:15 05/28/17 06:15 PT 11.0 Seconds (9.9-11.8) 05/26/17 16:55 INR 1.02 (0.93-1.08) 05/26/17 16:55 APTT 24.9 Seconds (23.7-30.8) 05/26/17 16:55 - Constitutional Appears: Well, No Acute Distress - Head Exam Head Exam: ATRAUMATIC, NORMOCEPHALIC - Eye Exam Eye Exam: Normal appearance - ENT Exam ENT Exam: Mucous Membranes Moist - Respiratory Exam Respiratory Exam: Clear to Ausculation Bilateral, NORMAL BREATHING PATTERN. absent: Prolonged Expiratory Phase, Rales, Rhonchi, Wheezes - Cardiovascular Exam Cardiovascular Exam: REGULAR RHYTHM, +S1, +S2 - GI/Abdominal Exam GI & Abdominal Exam: Soft, Normal Bowel Sounds. absent: Guarding, Rigid, Tenderness, Hernia, Hyperactive Bowel Sounds, Organomegaly - Extremities Exam Extremities Exam: absent: Joint Swelling, Pedal Edema - Neurological Exam Neurological Exam: Alert, Awake, Oriented x3 - Psychiatric Exam Psychiatric exam: Normal Affect, Normal Mood - Skin Skin Exam: Dry, Intact, Normal Color, Warm Assessment and Plan - Assessment and Plan (Free Text) Assessment: Sara Melara is a 72 F w/ hx of HTN, CKD, and anemia who presents with abd pain. Etiology is likely 2/2 constipation. 1. Abd pain 2. Constipation 3. Bloating/dyspepsia Plan: -continue miralax daily to BID at home -important to stay on bowel regiment while taking narcotics -exercise as tolerated -recommend weight loss -increase fiber intake and water intake -recommend pt undergo colonoscopy and EGD as an oupt -follow-up in with Dr Jordan in 2-4 weeks -continue PPI daily -will sign off -please reconsult if needed D/W Dr. Ford <Gato Ford - Last Filed: 05/28/17 11:24> Objective - Vital Signs/Intake and Output Vital Signs (last 24 hours): Temp Pulse Resp BP Pulse Ox 98.4 F 107 H 20 107/62 95 05/28/17 06:00 05/28/17 10:00 05/28/17 06:00 05/28/17 06:00 05/28/17 06:00 Intake and Output: 05/28/17 05/28/17 06:59 18:59 Intake Total 3000 Balance 3000 - Medications Medications: Current Medications Alprazolam (Xanax) 0.25 mg PO HS [facility] PRN Reason: Protocol Stop: 06/03/17 22:01 Last Admin: 05/27/17 21:36 Dose: 0.25 mg Cholecalciferol (Vitamin D) 2,000 iu PO DAILY [facility] Last Admin: 05/28/17 09:31 Dose: 2,000 iu Ergocalciferol (Drisdol 50,000 Intl Units Cap) 1 cap PO Q7D [facility] Stop: 08/13/17 09:31 Last Admin: 05/28/17 09:30 Dose: 1 cap Ferrous Sulfate (Feosol) 324 mg PO DAILY [facility] Last Admin: 05/28/17 09:27 Dose: 324 mg Pantoprazole Sodium (Protonix 40mg Ivpb) 40 mg in 100 mls @ 200 mls/hr IVPB 0600 [facility] Last Admin: 05/28/17 05:11 Dose: 200 mls/hr Ceftriaxone Sodium (Rocephin 1 Gram Ivpb) 1 gm in 100 mls @ 100 mls/hr IVPB DAILY [facility] PRN Reason: Protocol Last Admin: 05/28/17 09:26 Dose: 100 mls/hr Sodium Chloride (Sodium Chloride 0.9%) 1,000 mls @ 100 mls/hr IV .Q10H [facility] Last Admin: 05/27/17 21:47 Dose: 100 mls/hr Potassium Chloride (Potassium Chloride 10 Meq/100 Ml) 10 meq in 100 mls @ 100 mls/hr IVPB Q2H [facility] Stop: 05/28/17 12:14 Last Admin: 05/28/17 09:26 Dose: 100 mls/hr Ondansetron HCl (Zofran Inj) 4 mg IVP Q4H PRN PRN Reason: Nausea/Vomiting Polyethylene Glycol (Miralax) 17 gm PO BID [facility] Last Admin: 05/28/17 09:31 Dose: Not Given Sennosides (Senokot Tab) 17.2 mg PO HS [facility] Last Admin: 05/27/17 21:36 Dose: 17.2 mg Tramadol HCl (Ultram) 50 mg PO TID [facility] Last Admin: 05/28/17 09:27 Dose: 50 mg - Labs Labs: 05/28/17 06:15 05/28/17 06:15 PT 11.0 Seconds (9.9-11.8) 05/26/17 16:55 INR 1.02 (0.93-1.08) 05/26/17 16:55 APTT 24.9 Seconds (23.7-30.8) 05/26/17 16:55 Attending/Attestation - Attestation I have personally seen and examined this patient.: Yes I have fully participated in the care of the patient.: Yes I have reviewed all pertinent clinical information, including history, physical exam and plan: Yes Notes (Text): 05/28/17 11:21 I have seen and examined patient with GI fellow. No acute events overnight. Her abdominal pain and constipation have resolved. She is now having multiple loose bowel movements following administration of miralax. She denies nausea, vomiting, fever/chills. Tolerating PO diet without difficulty. HTN CKD Abdominal pain, constipation - resolved Leukocytosis - Advance diet as tolerated - Continue with bowel regimen to prevent recurrent constipation - Continue with antibiotics as per ID, follow up infectious workup - Patient would benefit from elective outpatient colonoscopy following resolution of acute symptoms. Will sign off case, please reconsult as necessary , thank you.
[2017-05-28] MEDS ORDERED: Potassium Chloride 20 mEq ER Tab PO ONE (08:05)
[2017-05-28 08:44] LABS: CREATININE, RANDOM URINE 96 mg/dL (20-320)
[2017-05-28] MEDS: cefTRIAXone 1 gm 1 GM/100 ML BAG IVPB SCH (09:26)
[2017-05-28] MEDS ORDERED: Ergocalciferol 50,000 Intl Units Cap PO SCH (09:30)
[2017-05-28] MEDS: POLYETHYLENE GLYCOL 3350 17 GM/Dose PACKET PO SCH ×2 (09:31→17:30)
--- NOTE | 2017-05-28 10:39 | PN ---
DATE: SUBJECTIVE: I saw her sitting up in bed. She is feeling a lot better. The legs are less swollen. She moved her bowels. I went for physical therapy to take a look at her and make sure she is walking fairly well, see what they recommend and she is eating better. PHYSICAL EXAMINATION VITAL SIGNS: She has a 98.4 temperature, 105 pulse, 107/62 blood pressure, 20 respiratory rate and 95% O2 saturation on room air. HEENT: Head is atraumatic and normocephalic. Mouth is moist. NECK: Supple. HEART: Regular rate. LUNGS: Decreased breath sounds, but clear to auscultation. ABDOMEN: Soft, obese and nontender. Positive bowel sounds. EXTREMITIES: A +2/4 pitting edema, but much less than day before. MEDICATIONS: She is on MiraLax, Protonix, Rocephin, Senokot, IV fluids, Ultram, Xanax, and Zofran. LABORATORY DATA: She has 138 sodium, potassium 3, it went up a little bit. I gave two potassium riders today. BUN is 42 and creatinine 1.8, coming down nicely every another day. GFR is 28, sugar is 114, and calcium is 9.4. Her iron level is 37, low, I am going to add iron. AST is 20, ALT is 29, and alkaline phos is 107. Total protein 6.4. PLAN: I am also going to add vitamin D because she had very low vitamin D, less than 12.8. She is being seen by GI, Infectious Disease,Renal and Cardiology. The plan is to get her home, hopefully the next day or two. I think the MiraLax has helped her. See what physical therapy has to say. ID has to say about the white count being elevated still. Her white count is 13.7 with hemoglobin 11.2, hematocrit 32 and platelet 239. We will continue with aggressive treatment and care on Sara Melara and our exit plan will be home. She refuses any other plan. Lucho Mackay DO
[2017-05-28] MEDS: Sodium Chloride 0.9% 1,000 ML IV SCH ×2 (11:52→17:32)
--- NOTE | 2017-05-28 13:47 | PN ---
CARDIOLOGY FOLLOW UP DATE: 05/28/2017 SUBJECTIVE: The patient is without shortness of breath. Her main complaint is her lower back pain with sciatica. PHYSICAL EXAMINATION: VITAL SIGNS: Blood pressure 107/62, heart rate is sinus rhythm. NECK: Negative JVD. LUNGS: Without rales. HEART: S1, S2. EXTREMITIES: Without edema. LABORATORY DATA: BUN is better from 64 to 42 after IV hydration. Creatinine is better from 2.3 to 1.8. Potassium is 3.0. IMPRESSION: 1. Resolution of nausea. 2. Prerenal azotemia is better with IV hydration. 3. Renal insufficiency. 4. Diabetes mellitus. 5. Hypertension. PLAN: Given these findings, we will discontinue telemetry today. We will continue on IV hydration. Kendall Shelley MD
--- NOTE | 2017-05-28 14:11 | CP.PCM.PN ---
Subjective - Date & Time of Evaluation Date of Evaluation: 05/28/17 Time of Evaluation: 10:10 - Subjective Subjective: Comfortable, not in distress, afebrile, no more abdominal pain, on laxatives so she is having loose bowel movements. Objective - Vital Signs/Intake and Output Vital Signs (last 24 hours): Temp Pulse Resp BP Pulse Ox 98.4 F 105 H 20 107/62 95 05/28/17 06:00 05/28/17 06:00 05/28/17 06:00 05/28/17 06:00 05/28/17 06:00 Intake and Output: 05/28/17 05/28/17 06:59 18:59 Intake Total 3000 Balance 3000 - Medications Medications: Current Medications Alprazolam (Xanax) 0.25 mg PO [facility] PRN Reason: Protocol Stop: 06/03/17 22:01 Last Admin: 05/27/17 21:36 Dose: 0.25 mg Pantoprazole Sodium (Protonix 40mg Ivpb) 40 mg in 100 mls @ 200 mls/hr IVPB 0600 [facility] Last Admin: 05/28/17 05:11 Dose: 200 mls/hr Ceftriaxone Sodium (Rocephin 1 Gram Ivpb) 1 gm in 100 mls @ 100 mls/hr IVPB DAILY [facility] PRN Reason: Protocol Last Admin: 05/27/17 09:32 Dose: 100 mls/hr Sodium Chloride (Sodium Chloride 0.9%) 1,000 mls @ 100 mls/hr IV .Q10H [facility] Last Admin: 05/27/17 21:47 Dose: 100 mls/hr Ondansetron HCl (Zofran Inj) 4 mg IVP Q4H PRN PRN Reason: Nausea/Vomiting Polyethylene Glycol (Miralax) 17 gm PO BID [facility] Last Admin: 05/27/17 18:42 Dose: 17 gm Sennosides (Senokot Tab) 17.2 mg PO HS [facility] Last Admin: 05/27/17 21:36 Dose: 17.2 mg Tramadol HCl (Ultram) 50 mg PO TID [facility] Last Admin: 05/28/17 05:07 Dose: 50 mg - Labs Labs: 05/28/17 06:15 05/28/17 06:15 PT 11.0 Seconds (9.9-11.8) 05/26/17 16:55 INR 1.02 (0.93-1.08) 05/26/17 16:55 APTT 24.9 Seconds (23.7-30.8) 05/26/17 16:55 - Constitutional Appears: Non-toxic, No Acute Distress - Head Exam Head Exam: NORMAL INSPECTION - ENT Exam ENT Exam: Mucous Membranes Moist - Neck Exam Neck Exam: absent: Meningismus - Respiratory Exam Respiratory Exam: Decreased Breath Sounds - Cardiovascular Exam Cardiovascular Exam: +S1, +S2 - GI/Abdominal Exam GI & Abdominal Exam: Soft. absent: Tenderness Assessment and Plan - Assessment and Plan (Free Text) Plan: Assessment systemic inflammatory response syndrome, R/O acute gastroenteritis R/O abdominal pain due to constipation acute on chronic renal failure HTN DM spinal stenosis history of urinary incontinence history of neuropathy S/P hysterectomy Plan continue Rocephin pending blood cx, urine cx - if these are negative, will d/c antibiotics will monitor clinically
--- NOTE | 2017-05-28 15:32 | CP.PCM.PN ---
Subjective - Date & Time of Evaluation Date of Evaluation: 05/28/17 Time of Evaluation: 15:31 - Subjective Subjective: Follow up Nephrology Consultation: Assessment: Stable Acute Kidney Injury (N17.9) likely due to dehydration, pre-renal state, some contribution by NSAIDs: improved CKD stage 3, likely HTN kidney disease (baseline cr 1.5) Obesity HTN (I12.9) Hypokalemia Anemia Vit D def Plan No acute need for renal replacement therapy at this time. start NS at 100 ml/hr supplement KCL 40 meq today Hypertension controlled without meds. hold diuretics Monitor Input/Output, daily weights and renal function with basic metabolic panel Check urine studies, Vit D/PTH, anemia work up Stop Mobic. started on Fe supplements and added weekly Vit D Dose meds/antibiotics for reduced GFR. Avoid fleets enema/magnesium based laxatives. Avoid nephrotoxins/NSAIDs/ iodinated contrast (unless needed emergently) Glycemic control Further work up/management as per primary team Thanks for allowing me to participate in care of your patient. Will follow patient with you. Please call if any Qs Dr Rudy Rivera Office: [phone] Chief Complaint; abdomen Cramps HPI: Pt is a 72 y/o F with hx of hypertension ( since teenage), obesity, CKD 3 (cr 1.5) and leg swelling which was being managed with diuretics, recent rehab and she was managing her joint pain with Mobic which she stopped 2 days ago presented with complaints of abdomen cramps for last 4-5 days. also had decreased oral intake. also with elevated cr and TA. no prior hx of renal disease known to patient Denies chest pain, palpitation, shortness of breath, leg swelling Denies blood or bubbles in urine Denies OTC/herbal meds or NSAIDs now. was taking mobic until 2 days ago No recent iodinated contrast exposure. No obvious episodes of low BP. ROS: Constitutional Symptoms: Denies fever. No chills. had lost 10 lbs recently Eyes: denies change in vision, denies watery eyes, denies double vision Ears/Nose/Mouth/Throat: Denies Abnormal Taste. No Bad breath no Bad Taste. Cardiovascular: No chest pain. There is no shortness of breath. No palpitations. Pulmonary: No shortness of breath no cough. Gastrointestinal: c/o mild abdominal pain/cramps c/o nausea. No vomiting. Denies change in bowel habits. Denies Bleeding Genitourinary: No Change in force of strain when urinating. no change in urinary frequency. No pain while urinating. Denies blood in urine. Neurological: Denies headaches. No dizziness. Denies loss of balance. Denies weakness, denies tingling/numbness Dermatological: No Rash or Bruising or ulcers. Psychiatric: Denies Anxiety. No depression. Denies hallucinations. Rheumatological: c/o hip joint pain. Denies Joint swelling Endocrine: Denies tiredness/Fatigue denies Heat/Cold Intolerance now All other negative Physical Examination: General Appearance: Comfortable, in no acute respiratory distress, co-operative .obese Vitals reviewed and noted as below Head; Atraumatic, normocephalic ENT: no ulcers no thrush. Tongue is midline. Oropharynx: no rash or ulcers. EYES: Pupils are equal, round and reactive to light accommodation. Eye muscles and extraocular movement intact. Sclera is anicteric. Neck; supple no lymphadenopathy, no thyromegaly or bruit Lungs: Normal respiratory rate/effort. Breath sounds bilateral equal and clear Heart: Normal rate. s1s2 normal. No rub or gallop. Extremities: no edema. No varicose veins Neurological: Patient is alert, awake and oriented to person, place and time. No focal deficit. Strength bilateral appropriate and equal Skin: Warm and dry. Normal turgor. No rash. Palpitation: Normal elasticity for age Abdomen: Abdomen is soft. Bowel sounds +. There is no abdominal tenderness, no guarding/rigidity no organomegaly Psych: normal insight and normal affect/mood MSK: no joint tenderness or swelling. Digits and nails normal, no deformity : kidney or bladder not palpable Labs/imaging/EKG reviewed. Past medical history, past surgical history, family history, social history, allergy reviewed and noted as below Family hx: no hx of CKD. Rest non-contributory Objective - Vital Signs/Intake and Output Vital Signs (last 24 hours): Temp Pulse Resp BP Pulse Ox 97.8 F 88 18 121/62 95 05/28/17 11:56 05/28/17 11:56 05/28/17 11:56 05/28/17 11:56 05/28/17 06:00 Intake and Output: 1006/17 10/06/17 06:59 18:59 Intake Total 3000 Balance 3000 - Medications Medications: Current Medications Alprazolam (Xanax) 0.25 mg PO HS [facility] PRN Reason: Protocol Stop: 06/03/17 22:01 Last Admin: 05/27/17 21:36 Dose: 0.25 mg Cholecalciferol (Vitamin D) 2,000 iu PO DAILY [facility] Last Admin: 05/28/17 09:31 Dose: 2,000 iu Ergocalciferol (Drisdol 50,000 Intl Units Cap) 1 cap PO Q7D [facility] Stop: 08/13/17 09:31 Last Admin: 05/28/17 09:30 Dose: 1 cap Ferrous Sulfate (Feosol) 324 mg PO DAILY [facility] Last Admin: 05/28/17 09:27 Dose: 324 mg Pantoprazole Sodium (Protonix 40mg Ivpb) 40 mg in 100 mls @ 200 mls/hr IVPB 0600 [facility] Last Admin: 05/28/17 05:11 Dose: 200 mls/hr Ceftriaxone Sodium (Rocephin 1 Gram Ivpb) 1 gm in 100 mls @ 100 mls/hr IVPB DAILY [facility] PRN Reason: Protocol Last Admin: 05/28/17 09:26 Dose: 100 mls/hr Sodium Chloride (Sodium Chloride 0.9%) 1,000 mls @ 100 mls/hr IV .Q10H [facility] Last Admin: 05/28/17 11:52 Dose: Not Given Ondansetron HCl (Zofran Inj) 4 mg IVP Q4H [facility] PRN Reason: Nausea/Vomiting Polyethylene Glycol (Miralax) 17 gm PO BID [facility] Last Admin: 05/28/17 09:31 Dose: Not Given Sennosides (Senokot Tab) 17.2 mg PO HS [facility] Last Admin: 05/27/17 21:36 Dose: 17.2 mg Tramadol HCl (Ultram) 50 mg PO TID [facility] Last Admin: 05/28/17 09:27 Dose: 50 mg - Labs Labs: 05/28/17 06:15 05/28/17 06:15 PT 11.0 Seconds (9.9-11.8) 05/26/17 16:55 INR 1.02 (0.93-1.08) 05/26/17 16:55 APTT 24.9 Seconds (23.7-30.8) 05/26/17 16:55
[2017-05-28 17:06] VITALS: RESP 20
[2017-05-28 20:04] LABS: BETA 1 GLOBULIN 0.4 g/dL (0.4-0.6); BETA 2 GLOBULIN 0.4 g/dL (0.2-0.5); GAMMA GLOBULIN 0.9 g/dL (0.8-1.7)
[2017-05-29] MEDS: Sodium Chloride 0.9% 1,000 ML IV SCH (03:15)
[2017-05-29 06:15] VITALS: BP 113/47; PULSE 103; TEMP 98.2
[2017-05-29 06:35] LABS: HEMATOCRIT 33.5 % (36.0-48.0); MEAN CELL VOLUME 88.2 fl (80.0-105.0); MEAN CORPUSCULAR HEMOGLOBIN 29.2 pg (25.0-35.0); MEAN CORPUSCULAR HGB CONC 33.1 g/dl (31.0-37.0); MEAN PLATELET VOLUME 11.3 fl (7.0-11.0); RED CELL DISTRIBUTION WIDTH 14.5 % (11.5-14.5); WHITE BLOOD COUNT 13.8 10^3/ul (4.5-11.0)
[2017-05-29] MEDS: Pantoprazole 40mg/100ml IVPB 40 MG/100 ML BAG IVPB SCH (06:47)
[2017-05-29 06:55] LABS: ALB/GLOB RATIO 1.3 (1.1-1.8); BILIRUBIN,TOTAL 0.5 mg/dL (0.2-1.3); CALCIUM 9.1 mg/dL (8.4-10.5); POTASSIUM 3.5 mmol/L (3.6-5.0); TOTAL PROTEIN 6.3 g/dL (5.8-8.3)
[2017-05-29 08:16] VITALS: O2SAT 97
[2017-05-29] MEDS: POLYETHYLENE GLYCOL 3350 17 GM/Dose PACKET PO SCH (09:27)
[2017-05-29] MEDS: cefTRIAXone 1 gm 1 GM/100 ML BAG IVPB SCH (09:27)
--- NOTE | 2017-05-29 12:24 | CP.PCM.PN ---
Subjective - Date & Time of Evaluation Date of Evaluation: 05/29/17 Time of Evaluation: 12:20 - Subjective Subjective: seen and examined no complaints pe: gen: nad sclera: anicteric op: clear neck: supple cv: +s1+s2 lungs: cta abd: soft ext: no edema Neuro: a+ox3 psych: normal affect skin: no rash IMP: Acute Kidney Injury (N17.9) likely due to dehydration, pre-renal state, some contribution by NSAIDs: improved CKD stage 3, likely HTN kidney disease (baseline cr 1.5) Obesity HTN (I12.9) Hypokalemia Anemia Vit D def iron def anemia Plan Cr improved at baseline at this point No acute need for renal replacement therapy at this time. will d/c fluid K improved vit d very low on supplement on iron Objective - Vital Signs/Intake and Output Vital Signs (last 24 hours): Temp Pulse Resp BP Pulse Ox 98.2 F 103 H 20 113/47 L 97 05/29/17 08:15 05/29/17 08:15 05/29/17 08:15 05/29/17 08:15 05/29/17 12:05 Intake and Output: 05/29/17 05/29/17 06:59 18:59 Intake Total 720 Output Total 550 Balance 170 - Medications Medications: Current Medications Alprazolam (Xanax) 0.25 mg PO HS [facility] PRN Reason: Protocol Stop: 06/03/17 22:01 Last Admin: 05/28/17 22:56 Dose: 0.25 mg Cholecalciferol (Vitamin D) 2,000 iu PO DAILY [facility] Last Admin: 05/29/17 09:28 Dose: 2,000 iu Ergocalciferol (Drisdol 50,000 Intl Units Cap) 1 cap PO Q7D [facility] Stop: 08/13/17 09:31 Last Admin: 05/28/17 09:30 Dose: 1 cap Ferrous Sulfate (Feosol) 324 mg PO DAILY [facility] Last Admin: 05/29/17 09:27 Dose: 324 mg Pantoprazole Sodium (Protonix 40mg Ivpb) 40 mg in 100 mls @ 200 mls/hr IVPB 0600 [facility] Last Admin: 05/29/17 06:47 Dose: 200 mls/hr Sodium Chloride (Sodium Chloride 0.9%) 1,000 mls @ 100 mls/hr IV .Q10H [facility] Last Admin: 05/29/17 03:15 Dose: 100 mls/hr Ondansetron HCl (Zofran Inj) 4 mg IVP Q4H [facility] PRN Reason: Nausea/Vomiting Polyethylene Glycol (Miralax) 17 gm PO BID [facility] Last Admin: 05/29/17 09:27 Dose: Not Given Sennosides (Senokot Tab) 17.2 mg PO HS [facility] Last Admin: 05/28/17 22:57 Dose: Not Given Tramadol HCl (Ultram) 50 mg PO TID [facility] Last Admin: 05/29/17 09:28 Dose: 50 mg - Labs Labs: 05/29/17 06:00 05/29/17 06:00 PT 11.0 Seconds (9.9-11.8) 05/26/17 16:55 INR 1.02 (0.93-1.08) 05/26/17 16:55 APTT 24.9 Seconds (23.7-30.8) 05/26/17 16:55
--- NOTE | 2017-05-29 14:53 | CP.PCM.PN ---
Subjective - Date & Time of Evaluation Date of Evaluation: 05/29/17 Time of Evaluation: 12:20 - Subjective Subjective: Able to move her bowels well, no fevers, not in distress Objective - Vital Signs/Intake and Output Vital Signs (last 24 hours): Temp Pulse Resp BP Pulse Ox 98.2 F 103 H 20 113/47 L 97 05/29/17 08:15 05/29/17 08:15 05/29/17 08:15 05/29/17 08:15 05/29/17 08:15 Intake and Output: 05/29/17 05/29/17 06:59 18:59 Intake Total 720 Output Total 550 Balance 170 - Medications Medications: Current Medications Alprazolam (Xanax) 0.25 mg PO [facility] PRN Reason: Protocol Stop: 06/03/17 22:01 Last Admin: 05/28/17 22:56 Dose: 0.25 mg Cholecalciferol (Vitamin D) 2,000 iu PO DAILY [facility] Last Admin: 05/29/17 09:28 Dose: 2,000 iu Ergocalciferol (Drisdol 50,000 Intl Units Cap) 1 cap PO Q7D [facility] Stop: 08/13/17 09:31 Last Admin: 05/28/17 09:30 Dose: 1 cap Ferrous Sulfate (Feosol) 324 mg PO DAILY [facility] Last Admin: 05/29/17 09:27 Dose: 324 mg Pantoprazole Sodium (Protonix 40mg Ivpb) 40 mg in 100 mls @ 200 mls/hr IVPB 0600 [facility] Last Admin: 05/29/17 06:47 Dose: 200 mls/hr Sodium Chloride (Sodium Chloride 0.9%) 1,000 mls @ 100 mls/hr IV .Q10H [facility] Last Admin: 05/29/17 03:15 Dose: 100 mls/hr Ondansetron HCl (Zofran Inj) 4 mg IVP Q4H [facility] PRN Reason: Nausea/Vomiting Polyethylene Glycol (Miralax) 17 gm PO BID [facility] Last Admin: 05/29/17 09:27 Dose: Not Given Sennosides (Senokot Tab) 17.2 mg PO HS [facility] Last Admin: 05/28/17 22:57 Dose: Not Given Tramadol HCl (Ultram) 50 mg PO TID [facility] Last Admin: 05/29/17 09:28 Dose: 50 mg - Labs Labs: 05/29/17 06:00 05/29/17 06:00 PT 11.0 Seconds (9.9-11.8) 05/26/17 16:55 INR 1.02 (0.93-1.08) 05/26/17 16:55 APTT 24.9 Seconds (23.7-30.8) 05/26/17 16:55 - Constitutional Appears: Non-toxic, No Acute Distress - Head Exam Head Exam: NORMAL INSPECTION - Respiratory Exam Respiratory Exam: Decreased Breath Sounds - Cardiovascular Exam Cardiovascular Exam: +S1, +S2 - GI/Abdominal Exam GI & Abdominal Exam: Soft. absent: Tenderness Assessment and Plan - Assessment and Plan (Free Text) Plan: Assessment systemic inflammatory response syndrome, consider due to abdominal pain due to constipation acute on chronic renal failure HTN DM spinal stenosis history of urinary incontinence history of neuropathy S/P hysterectomy Plan will d/c Rocephin - blood cx, urine cx are negative will continue to monitor clinically
== END 2017-05-29 17:02 | DRG 683 ==
LOC: ED 16:06 → ERH 21:26 → 2RNO 22:27 → 5RSO 05-28 14:20
PROVIDERS: ADMIT Family Medicine; ATTEND Family Medicine
DX: N17.9 Acute kidney failure, unspecified (principal); R65.10 Systemic inflammatory response syndrome (SIRS) of non-infectious origin without acute organ dysfunction; E11.22 Type 2 diabetes mellitus with diabetic chronic kidney disease; E11.40 Type 2 diabetes mellitus with diabetic neuropathy, unspecified; E86.0 Dehydration; I12.9 Hypertensive chronic kidney disease with stage 1 through stage 4 chronic kidney disease, or unspecified chronic kidney disease; N18.3 Chronic kidney disease, stage 3 (moderate); E87.6 Hypokalemia; D50.9 Iron deficiency anemia, unspecified; D72.829 Elevated white blood cell count, unspecified; E55.9 Vitamin D deficiency, unspecified; E66.9 Obesity, unspecified; K59.09 Other constipation; M48.00 Spinal stenosis, site unspecified; M54.40 Lumbago with sciatica, unspecified side; R32 Unspecified urinary incontinence; Z82.49 Family history of ischemic heart disease and other diseases of the circulatory system; Z87.01 Personal history of pneumonia (recurrent); Z90.710 Acquired absence of both cervix and uterus; R40.2412 Glasgow coma scale score 13-15, at arrival to emergency department; K29.70 Gastritis, unspecified, without bleeding; R00.0 Tachycardia, unspecified; L40.9 Psoriasis, unspecified; R10.13 Epigastric pain; K52.9 Noninfective gastroenteritis and colitis, unspecified

== ENCOUNTER 2017-05-29 17:06 | Inpatient (IN) | payer OTHER, MEDICAID ==
[2017-05-29 18:17] VITALS: BMI 33.6
[2017-05-29] MEDS ORDERED: Pneumococcal 23-Valent Vaccine IM ONE (21:31)
[2017-05-30] MEDS ORDERED: Pantoprazole 40mg/100ml IVPB 40 MG/100 ML BAG IVPB SCH (06:00)
[2017-05-30 07:24] LABS: HEMATOCRIT 30.2 % (36.0-48.0); MEAN CELL VOLUME 87.3 fl (80.0-105.0); MEAN CORPUSCULAR HEMOGLOBIN 28.6 pg (25.0-35.0); MEAN CORPUSCULAR HGB CONC 32.8 g/dl (31.0-37.0); MEAN PLATELET VOLUME 10.9 fl (7.0-11.0); RED CELL DISTRIBUTION WIDTH 14.5 % (11.5-14.5); WHITE BLOOD COUNT 11.4 10^3/ul (4.5-11.0)
[2017-05-30 07:50] LABS: ALB/GLOB RATIO 1.2 (1.1-1.8); BILIRUBIN,TOTAL 0.5 mg/dL (0.2-1.3); CALCIUM 8.7 mg/dL (8.4-10.5); POTASSIUM 3.2 mmol/L (3.6-5.0); TOTAL PROTEIN 5.9 g/dL (5.8-8.3)
[2017-05-30] MEDS: POLYETHYLENE GLYCOL 3350 17 GM/Dose PACKET PO SCH ×2 (11:01→17:52)
[2017-05-30] MEDS ORDERED: Potassium Chloride 20 mEq ER Tab PO ONE (12:49)
--- NOTE | 2017-05-30 12:51 | CP.PCM.CON ---
History of Present Illness - History of Present Illness History of Present Illness: consult for TA hpi: Pt is a 72 y/o F with hx of hypertension, CKD3 that initially presented to the hospital last week w/ TA dude to prerenal etiology. Her cr improved and she was subsequently transferrerd to TCU. She complains of some swelling in her B/L lower extremities. SHe denies fever/chills/n/v/. SHe has a hx of nsaid use not currently. She otherwise has no complaints. ros: a full detailed ROS is negative except as in my hpi famhx: no esrd in family sochx: no active smoke/etoh/ivdu all: nkda Physical Examination: General Appearance: Comfortable, in no acute respiratory distress, co-operative .obese Vitals reviewed and noted as below Head; Atraumatic, normocephalic ENT: no ulcers no thrush. Tongue is midline. Oropharynx: no rash or ulcers. EYES: Pupils are equal, round and reactive to light accommodation. Eye muscles and extraocular movement intact. Sclera is anicteric. Neck; supple no lymphadenopathy, no thyromegaly or bruit Lungs: Normal respiratory rate/effort. Breath sounds bilateral equal and clear Heart: Normal rate. s1s2 normal. No rub or gallop. Extremities: non pitting edema b/l R > L Neurological: Patient is alert, awake and oriented to person, place and time. No focal deficit. Strength bilateral appropriate and equal Skin: Warm and dry. Normal turgor. No rash. Palpitation: Normal elasticity for age Abdomen: Abdomen is soft. Bowel sounds +. There is no abdominal tenderness, no guarding/rigidity no organomegaly Psych: normal insight and normal affect/mood MSK: no joint tenderness or swelling. Digits and nails normal, no deformity : kidney or bladder not palpable IMP: Acute Kidney Injury (N17.9) likely due to dehydration, pre-renal state, some contribution by NSAIDs CKD stage 3, likely HTN kidney disease Obesity HTN (I12.9) Hypokalemia Anemia Lymphedema Plan Cr remains stable will give po K today bp ok continue vit d supplement edema is nonpitting recc lymphedema eval Past Patient History - Infectious Disease Hx of Infectious Diseases: None - Past Social History Smoking Status: Never Smoked - CARDIAC Hx Cardiac Disorders: Yes Hx Hypertension: Yes - PULMONARY Hx Pneumonia: Yes - NEUROLOGICAL Hx Neurological Disorder: No - HEENT Hx HEENT Problems: Yes (Glasses) - RENAL Hx Chronic Kidney Disease: No - ENDOCRINE/METABOLIC Hx Diabetes Mellitus Type 2: Yes - HEMATOLOGICAL/ONCOLOGICAL Hx Blood Disorders: No - INTEGUMENTARY Hx Psoriasis: Yes - MUSCULOSKELETAL/RHEUMATOLOGICAL Hx Falls: No - GASTROINTESTINAL Hx Gastrointestinal Disorders: Yes (OBESITY) - GENITOURINARY/GYNECOLOGICAL Hx Reproductive Disorders: Yes (hyst) - PSYCHIATRIC Hx Psychophysiologic Disorder: No - SURGICAL HISTORY Hx Hysterectomy: Yes - ANESTHESIA Hx Anesthesia Reactions: No Hx Malignant Hyperthermia: No Meds Allergies/Adverse Reactions: Allergies Allergy/AdvReac Type Severity Reaction Status Date / Time No Known Allergies Allergy Verified 03/17/17 20:52 - Medications Medications: Current Medications Alprazolam (Xanax) 0.25 mg PO HS [facility] PRN Reason: Protocol Stop: 06/05/17 22:01 Last Admin: 05/29/17 21:15 Dose: 0.25 mg Cholecalciferol (Vitamin D) 2,000 iu PO DAILY [facility] PRN Reason: Protocol Last Admin: 05/30/17 10:15 Dose: 2,000 iu Ferrous Sulfate (Feosol) 324 mg PO DAILY [facility] Last Admin: 05/30/17 10:15 Dose: 324 mg Ondansetron HCl (Zofran Inj) 4 mg IVP Q4H PRN; Protocol PRN Reason: Nausea/Vomiting Pantoprazole Sodium (Protonix Ec Tab) 40 mg PO 0600 [facility] PRN Reason: Protocol Polyethylene Glycol (Miralax) 17 gm PO BID [facility] PRN Reason: Protocol Last Admin: 05/30/17 11:01 Dose: Not Given Sennosides (Senokot Tab) 17.2 mg PO HS [facility] PRN Reason: Protocol Last Admin: 05/29/17 21:14 Dose: 17.2 mg Tramadol HCl (Ultram) 50 mg PO Q8 [facility] PRN Reason: Protocol Last Admin: 05/30/17 05:56 Dose: 50 mg Results - Vital Signs Recent Vital Signs: Last Vital Signs Temp 98.4 F 05/29/17 21:22 Pulse 81 05/29/17 21:22 Resp 16 05/29/17 21:22 BP 123/77 05/29/17 21:22 Pulse Ox - Labs Result Diagrams: 05/30/17 05:00 10/08/17 05:00 Labs: Laboratory Results - last 24 hr 05/30/17 05/30/17 05:00 05:00 WBC 11.4 H RBC 3.46 L Hgb 9.9 L Hct 30.2 L MCV 87.3 MCH 28.6 MCHC 32.8 RDW 14.5 Plt Count 214 MPV 10.9 Sodium 140 Potassium 3.2 L Chloride 102 Carbon Dioxide 27 Anion Gap 14 BUN 22 H Creatinine 1.4 H Est GFR ( Amer) 45 Est GFR (Non-Af Amer) 37 Random Glucose 104 Calcium 8.7 Total Bilirubin 0.5 AST 19 ALT 27 Alkaline Phosphatase 89 Total Protein 5.9 Albumin 3.2 Globulin 2.7 Albumin/Globulin Ratio 1.2
--- NOTE | 2017-05-30 16:15 | CON ---
CARDIOLOGY CONSULT DATE: HISTORY OF PRESENT ILLNESS: The patient is a 72-year-old female who has a history of hypertension and stage III chronic kidney disease and has a history of significant bilateral leg lymphedema who was recently admitted on the 4th of this month because of abdominal pain and weakness. The patient also reported chest pain in the emergency room and had cardiac evaluation by Dr. Kendall Shelley during her most recent admission. The patient was then admitted to TCU. The patient has a history of spinal canal stenosis. She practically uses wheelchair at home, is unaware of any prior history of heart attack and she denies any chest pain at this time. SOCIAL HISTORY: Nonsmoker. Nondrinker. MEDICATIONS: Ferrous sulphate 325 mg once a day, Protonix 40 mg twice a day, Ultram 50 mg q. 8 hours, vitamin D 2000 International Units orally daily, Xanax 0.25 mg at bedtime, Zofran 4 mg intravenously q. 4 hours p.r.n. REVIEW OF SYSTEMS: The patient denies any dizziness at this time. No palpitation or chest pain. No nausea or vomiting. PHYSICAL EXAMINATION: GENERAL: The patient is an elderly female who does not appear to be in acute distress. VITAL SIGNS: Blood pressure 123/77, heart rate 81, temperature 98.4, respirations 16. HEENT: Pale conjunctivae. CHEST: Clear. HEART: S1 and S2 regular. ABDOMEN: Soft. No tenderness. EXTREMITIES: 2 to 3+ nonpitting edema with chronic skin changes. LABORATORY DATA: Hemoglobin and hematocrit 9.9 and 38.2, white count 11.4, platelet count 214,000. SMA-7: Sodium 140, potassium 3.2, chloride 102, CO2 27, glucose 104, BUN 22, creatinine 1.4. Initial BUN and creatinine on admission on 05/26/2017 were 77 and 2.7 respectively. EKG on admission on the 05/26/2017 revealed sinus tachycardia at rate of 112. Echocardiography study performed in 02/2017 revealed normal left ventricular size with some mild concentric LVH and normal ejection fraction, normal wall motion, and grade I abnormal relaxation pattern. ASSESSMENT: 1. Sinus tachycardia on admission on 05/26/2017. 2. Chest pain, myocardial infarction was ruled out again. 3. Improved renal insufficiency. 4. Anemia. RECOMMENDATIONS: Continue current medications including vitamin D, Feosol, Ultram, and p.r.n. IV Zofran. Obtain 12-lead EKG. Lev Pitts MD
--- NOTE | 2017-05-30 17:00 | CP.PCM.CON ---
History of Present Illness - History of Present Illness History of Present Illness: 72 year old female with PMH of chronic renal failure, HTN, DM, spinal stenosis, history of urinary incontinence, history of neuropathy, S/P hysterectomy was initially admitted in [facility] because of abdominal pain. She was found to have constipation and has improved with laxatives. She was initially thought to have acute gastroenteritis but test results and subsequent days did not point to it as the culprit. She is now transferred to [facility] for continued medical therapy and physical therapy. Infectious Diseases consult is requested to see if the patient still needs antibiotics. Currently she is comfortable, no more abdominal pain, no nausea or vomiting, no headache or dizziness, no chest pain, no SOB, no cough or colds, no diarrhea, no dysuria. Review of Systems - Review of Systems All systems: reviewed and no additional remarkable complaints except (as per HPI ) Past Patient History - Infectious Disease Hx of Infectious Diseases: None - Past Social History Smoking Status: Never Smoked - CARDIAC Hx Cardiac Disorders: Yes Hx Hypertension: Yes - PULMONARY Hx Pneumonia: Yes - NEUROLOGICAL Hx Neurological Disorder: No - HEENT Hx HEENT Problems: Yes (Glasses) - RENAL Hx Chronic Kidney Disease: No - ENDOCRINE/METABOLIC Hx Diabetes Mellitus Type 2: Yes - HEMATOLOGICAL/ONCOLOGICAL Hx Blood Disorders: No - INTEGUMENTARY Hx Psoriasis: Yes - MUSCULOSKELETAL/RHEUMATOLOGICAL Hx Falls: No - GASTROINTESTINAL Hx Gastrointestinal Disorders: Yes (OBESITY) - GENITOURINARY/GYNECOLOGICAL Hx Reproductive Disorders: Yes (hyst) - PSYCHIATRIC Hx Psychophysiologic Disorder: No - SURGICAL HISTORY Hx Hysterectomy: Yes - ANESTHESIA Hx Anesthesia Reactions: No Hx Malignant Hyperthermia: No Meds Allergies/Adverse Reactions: Allergies Allergy/AdvReac Type Severity Reaction Status Date / Time No Known Allergies Allergy Verified 03/17/17 20:52 - Medications Medications: Current Medications Alprazolam (Xanax) 0.25 mg PO HS WALT PRN Reason: Protocol Stop: 06/05/17 22:01 Last Admin: 05/29/17 21:15 Dose: 0.25 mg Cholecalciferol (Vitamin D) 2,000 iu PO DAILY [facility] PRN Reason: Protocol Ergocalciferol (Drisdol 50,000 Intl Units Cap) 1 cap PO Q7D [facility] PRN Reason: Protocol Ferrous Sulfate (Feosol) 324 mg PO DAILY [facility] Pantoprazole Sodium (Protonix 40mg Ivpb) 40 mg in 100 mls @ 200 mls/hr IVPB 0600 [facility]ALT PRN Reason: Protocol Last Admin: 05/30/17 05:51 Dose: 200 mls/hr Ondansetron HCl (Zofran Inj) 4 mg IVP Q4H PRN; Protocol PRN Reason: Nausea/Vomiting Polyethylene Glycol (Miralax) 17 gm PO BID [facility]ALT PRN Reason: Protocol Sennosides (Senokot Tab) 17.2 mg PO HS [facility] PRN Reason: Protocol Last Admin: 05/29/17 21:14 Dose: 17.2 mg Tramadol HCl (Ultram) 50 mg PO Q8 [facility] PRN Reason: Protocol Last Admin: 05/30/17 05:56 Dose: 50 mg Physical Exam - Constitutional Appears: Non-toxic - Head Exam Head Exam: NORMAL INSPECTION - ENT Exam ENT Exam: Mucous Membranes Moist - Neck Exam Neck exam: Negative for: Meningismus - Respiratory Exam Respiratory Exam: Decreased Breath Sounds - Cardiovascular Exam Cardiovascular Exam: +S1, +S2 - GI/Abdominal Exam GI & Abdominal Exam: Soft. absent: Tenderness Results - Vital Signs Recent Vital Signs: Last Vital Signs Temp 98.4 F 05/29/17 21:22 Pulse 81 05/29/17 21:22 Resp 16 05/29/17 21:22 BP 123/77 05/29/17 21:22 Pulse Ox - Labs Result Diagrams: 05/30/17 05:00 05/30/17 05:00 Assessment & Plan - Assessment and Plan (Free Text) Plan: Assessment systemic inflammatory response syndrome, consider due to abdominal pain due to constipation acute on chronic renal failure HTN DM spinal stenosis history of urinary incontinence history of neuropathy S/P hysterectomy Plan blood cx, urine cx are negative will continue to monitor clinically off antibiotics since she is at risk for nosocomial infections
--- NOTE | 2017-05-30 18:43 | CARD ---
APPROVED REPORT EKG Measurement Heart [id number] <Conclusion> Sinus tachycardia Minimal voltage criteria for LVH, may be normal variant Borderline ECG
[2017-05-31] MEDS: Pantoprazole 40 mg EC Tab PO SCH (05:30)
[2017-05-31] MEDS: POLYETHYLENE GLYCOL 3350 17 GM/Dose PACKET PO SCH ×2 (09:50→17:29)
--- NOTE | 2017-05-31 10:33 | CP.PCM.PN ---
Subjective - Date & Time of Evaluation Date of Evaluation: 05/31/17 Time of Evaluation: 10:31 - Subjective Subjective: seen and examined dressing placed around b/l le Physical Examination: General Appearance: Comfortable, in no acute respiratory distress, co-operative .obese Vitals reviewed and noted as below Head; Atraumatic, normocephalic ENT: no ulcers no thrush. Tongue is midline. Oropharynx: no rash or ulcers. EYES: Pupils are equal, round and reactive to light accommodation. Eye muscles and extraocular movement intact. Sclera is anicteric. Neck; supple no lymphadenopathy, no thyromegaly or bruit Lungs: Normal respiratory rate/effort. Breath sounds bilateral equal and clear Heart: Normal rate. s1s2 normal. No rub or gallop. Extremities: compression dressing applied to b/l le Neurological: Patient is alert, awake and oriented to person, place and time. No focal deficit. Strength bilateral appropriate and equal Skin: Warm and dry. Normal turgor. No rash. Palpitation: Normal elasticity for age Abdomen: Abdomen is soft. Bowel sounds +. There is no abdominal tenderness, no guarding/rigidity no organomegaly Psych: normal insight and normal affect/mood MSK: no joint tenderness or swelling. Digits and nails normal, no deformity : kidney or bladder not palpable IMP: Acute Kidney Injury (N17.9) CKD stage 3, likely HTN kidney disease Obesity HTN (I12.9) Hypokalemia Anemia Lymphedema Plan will follow up cr and K again when available, agree w/ dressing for b/l le bp stable continue vit d supplement Objective - Vital Signs/Intake and Output Vital Signs (last 24 hours): Temp Pulse Resp BP Pulse Ox 98.2 F 101 H 14 118/51 L 97 05/30/17 16:00 05/30/17 16:00 05/30/17 16:00 05/30/17 16:00 05/30/17 16:00 Intake and Output: 05/31/17 05/31/17 06:59 18:59 Intake Total 1200 240 Output Total 1000 Balance 200 240 - Medications Medications: Current Medications Alprazolam (Xanax) 0.25 mg PO HS WALT PRN Reason: Protocol Stop: 06/05/17 22:01 Last Admin: 05/30/17 21:17 Dose: 0.25 mg Cholecalciferol (Vitamin D) 2,000 iu PO DAILY [facility] PRN Reason: Protocol Last Admin: 05/31/17 09:50 Dose: 2,000 iu Ferrous Sulfate (Feosol) 324 mg PO DAILY [facility] Last Admin: 05/31/17 09:49 Dose: 324 mg Ondansetron HCl (Zofran Inj) 4 mg IVP Q4H PRN; Protocol PRN Reason: Nausea/Vomiting Pantoprazole Sodium (Protonix Ec Tab) 40 mg PO 0600 [facility] PRN Reason: Protocol Last Admin: 05/31/17 05:30 Dose: 40 mg Polyethylene Glycol (Miralax) 17 gm PO BID [facility] PRN Reason: Protocol Last Admin: 05/31/17 09:50 Dose: Not Given Sennosides (Senokot Tab) 17.2 mg PO HS [facility] PRN Reason: Protocol Last Admin: 05/30/17 21:14 Dose: Not Given Tramadol HCl (Ultram) 50 mg PO Q8 [facility] PRN Reason: Protocol Last Admin: 05/31/17 05:30 Dose: 50 mg - Labs Labs: 05/30/17 05:00 05/30/17 05:00
--- NOTE | 2017-05-31 13:40 | PN ---
SUBJECTIVE: The patient seems to have been in TCU. A 72-year-old female currently doing much better. No chest pain. No shortness of breath. No nausea, no vomiting. PHYSICAL EXAMINATION VITAL SIGNS: Blood pressure is currently 118/58, pulse rate is a little elevated at 101, temperature is 98.2. HEENT: Normocephalic and atraumatic. [place] conjunctivae. Nonicteric sclerae. NECK: No JVD. No thyromegaly. CARDIOVASCULAR: Regular rate and rhythm. S1 and S2 appreciated. LUNGS: Bilateral air entry is positive. No wheezes or rhonchi. ABDOMEN: Nondistended and nontender. LABORATORY DATA: WBCs of 11.4, hemoglobin of 9.9, hematocrit of 38.2, platelets of 214. Chemistry within normal limits except for a potassium of 3.2. ASSESSMENT: 1. Hypertension. 2. Spinal stenosis. 3. Diabetes mellitus. At this point, we will continue the potassium replacement. Did note renal evaluation, and we will follow the patient very closely. Heron Eckert MD
--- NOTE | 2017-05-31 15:47 | CP.PCM.PN ---
Subjective - Date & Time of Evaluation Date of Evaluation: 05/31/17 Time of Evaluation: 10:45 - Subjective Subjective: Comfortable, no fevers. Objective - Vital Signs/Intake and Output Vital Signs (last 24 hours): Temp Pulse Resp BP Pulse Ox 98.2 F 101 H 14 118/51 L 97 05/30/17 16:00 05/30/17 16:00 05/30/17 16:00 05/30/17 16:00 05/30/17 16:00 Intake and Output: 05/31/17 05/31/17 06:59 18:59 Intake Total 1200 240 Output Total 1000 Balance 200 240 - Medications Medications: Current Medications Alprazolam (Xanax) 0.25 mg PO HS [facility] PRN Reason: Protocol Stop: 06/05/17 22:01 Last Admin: 05/30/17 21:17 Dose: 0.25 mg Cholecalciferol (Vitamin D) 2,000 iu PO DAILY [facility] PRN Reason: Protocol Last Admin: 05/30/17 10:15 Dose: 2,000 iu Ferrous Sulfate (Feosol) 324 mg PO DAILY [facility] Last Admin: 05/30/17 10:15 Dose: 324 mg Ondansetron HCl (Zofran Inj) 4 mg IVP Q4H PRN; Protocol PRN Reason: Nausea/Vomiting Pantoprazole Sodium (Protonix Ec Tab) 40 mg PO 0600 [facility] PRN Reason: Protocol Last Admin: 05/31/17 05:30 Dose: 40 mg Polyethylene Glycol (Miralax) 17 gm PO BID [facility] PRN Reason: Protocol Last Admin: 05/30/17 17:52 Dose: Not Given Sennosides (Senokot Tab) 17.2 mg PO HS [facility] PRN Reason: Protocol Last Admin: 05/30/17 21:14 Dose: Not Given Tramadol HCl (Ultram) 50 mg PO Q8 [facility] PRN Reason: Protocol Last Admin: 05/31/17 05:30 Dose: 50 mg - Labs Labs: 05/30/17 05:00 05/30/17 05:00 - Constitutional Appears: Non-toxic, No Acute Distress - Head Exam Head Exam: NORMAL INSPECTION - Neck Exam Neck Exam: absent: Meningismus - Respiratory Exam Respiratory Exam: Decreased Breath Sounds - Cardiovascular Exam Cardiovascular Exam: +S1, +S2 - GI/Abdominal Exam GI & Abdominal Exam: Soft. absent: Tenderness Assessment and Plan - Assessment and Plan (Free Text) Plan: Assessment systemic inflammatory response syndrome, consider due to abdominal pain due to constipation acute on chronic renal failure HTN DM spinal stenosis history of urinary incontinence history of neuropathy S/P hysterectomy Plan blood cx, urine cx are negative will continue to monitor clinically off antibiotics since she is at risk for hospital-acquired infections
[2017-06-01] MEDS: Pantoprazole 40 mg EC Tab PO SCH (05:37)
[2017-06-01 05:52] LABS: BASO # 0.02 K/mm3 (0.0-2.0); BASO % 0.3 % (0.0-3.0); EOS # 0.3 (0.0-0.7); EOS % 3.1 % (1.5-5.0); GRAN # 5.23 (1.4-6.5); GRAN % 65.6 % (50.0-68.0); HEMATOCRIT 29.4 % (36.0-48.0); LYMPH % 24.6 % (22.0-35.0); MEAN CELL VOLUME 88.3 fl (80.0-105.0); MEAN CORPUSCULAR HEMOGLOBIN 28.8 pg (25.0-35.0); MEAN CORPUSCULAR HGB CONC 32.7 g/dl (31.0-37.0); MEAN PLATELET VOLUME 10.5 fl (7.0-11.0); MONO # 0.5 (0.1-0.6); MONO % 6.4 % (1.0-6.0); RED CELL DISTRIBUTION WIDTH 14.5 % (11.5-14.5)
[2017-06-01 06:06] LABS: ALB/GLOB RATIO 1.1 (1.1-1.8); BILIRUBIN,TOTAL 0.4 mg/dL (0.2-1.3); CALCIUM 9.1 mg/dL (8.4-10.5); POTASSIUM 4.2 mmol/L (3.6-5.0); TOTAL PROTEIN 5.8 g/dL (5.8-8.3)
[2017-06-01] MEDS: POLYETHYLENE GLYCOL 3350 17 GM/Dose PACKET PO SCH ×3 (10:15→17:42)
--- NOTE | 2017-06-01 16:53 | HP ---
HISTORY OF PRESENT ILLNESS: I saw Sara resting comfortably, sitting up in bed. She is eating her breakfast. She is in good spirits. She is trying physical therapy. No chest pain or shortness of breath. No abdominal pain and comfortable. She is being seen by Infectious Disease and by Cardiology, who came over from the hospital side. She was not feeling well. She was nauseous with abdominal pain, and also difficulty ambulating. She ended up having acute on chronic renal failure, constipation, SIRS, anemia, and high white count. PAST MEDICAL HISTORY: Hypertension, diabetes, spinal stenosis, incontinence, pneumonia, neuropathy, falls, obese, hysterectomy, enlarged tumor, and fibroid tumor. FAMILY HISTORY: Hypertension in the family. SOCIAL HISTORY: Never smoked. No drugs. No alcohol. ALLERGIES: NO KNOWN DRUG ALLERGIES. CURRENT MEDICATIONS: She is currently taking iron, MiraLax, Protonix, Senokot, Ultram, vitamin D, Xanax, and Zofran. REVIEW OF SYSTEMS: Presently, no acute vision or hearing changes. No sore throat . No neck pain. Good spirits. No chest pain. No shortness of breath. No abdominal pain. No leg pain. No more nauseousness or gas. She is trying to walk better with physical therapy. No headaches. No nervousness. No sweating. PHYSICAL EXAMINATION: VITAL SIGNS: She has a temperature of 98.7, pulse 100, blood pressure 93/55, respiratory rate 18, and O2 saturation 96% on room air. HEENT: Head is atraumatic, normocephalic. Extraocular muscles are intact. Pupils are equal and reactive to light and accommodation. Throat is moist. NECK: Supple. HEART: Regular rate. LUNGS: Clear to auscultation with decreased breath sounds. ABDOMEN: Soft and nontender. Positive bowel sounds, morbidly obese. EXTREMITIES: With +1/4 pitting edema, but better. NEUROLOGIC: GCS is 15. Cranial nerves II through XII grossly intact. SKIN: Warm and dry. No rashes or ulcers. NODES: Thyroid midline. No palpable or appreciable lymphadenopathy. LABORATORY DATA: She had labs. She has an 8 white count, was 11.4, better; hemoglobin 9.6, hematocrit 29.4, and platelets 250. Sodium 142, potassium 4.2, it was low, better, BUN 22, creatinine 1.4, GFR of 37, calcium is 9.1, total bilirubin 0.4, AST 20, ALT 29, alkaline phosphatase 77, total protein 5.8, globulin is 2.8, and albumin is 3. PLAN: She is being seen by Infectious Disease and Renal. We will check her labs tomorrow. Encouraged her to eat well, drink lots of fluids, do well with physical therapy, and then get her home when we can. Lucho Mackay DO
--- NOTE | 2017-06-01 18:34 | PN ---
DATE: 06/01/2017 SUBJECTIVE: The patient is seen earlier this morning in room #327. No fevers and no chills. PHYSICAL EXAMINATION VITAL SIGNS: Temperature is 98, blood pressure is 93/50, respiratory rate of 18, heart rate of 96. HEENT: Unremarkable. NECK: Supple. LUNGS: Have decreased breath sounds. HEART: Normal S1, S2. ABDOMEN: Soft and nontender. LABORATORY EXAMINATION: Reveals a white count of 8, hemoglobin of 9, platelets of 250. Chemistries reveals a BUN of 22, creatinine of 1.4, and microbiology is noted. ASSESSMENT/PLAN: This is a 72-year-old female with systemic inflammatory response syndrome with acute on chronic renal failure, hypertension, diabetes, spinal stenosis, history of urinary incontinence, history of neuropathy, history of hysterectomy. She is off of antibiotics. The patient is at risk for developing nosocomial infections. Bello Joseph MD
[2017-06-02] MEDS: Pantoprazole 40 mg EC Tab PO SCH (05:32)
[2017-06-02 07:22] LABS: MEAN CELL VOLUME 87.7 fl (80.0-105.0); MEAN CORPUSCULAR HEMOGLOBIN 28.4 pg (25.0-35.0); MEAN CORPUSCULAR HGB CONC 32.3 g/dl (31.0-37.0); MEAN PLATELET VOLUME 10.2 fl (7.0-11.0); RED CELL DISTRIBUTION WIDTH 14.4 % (11.5-14.5); WHITE BLOOD COUNT 7.2 10^3/ul (4.5-11.0)
[2017-06-02 07:59] LABS: ALB/GLOB RATIO 1.1 (1.1-1.8); BILIRUBIN,TOTAL 0.3 mg/dL (0.2-1.3); CALCIUM 8.9 mg/dL (8.4-10.5); POTASSIUM 3.6 mmol/L (3.6-5.0)
[2017-06-02] MEDS: POLYETHYLENE GLYCOL 3350 17 GM/Dose PACKET PO SCH ×2 (09:57→17:32)
--- NOTE | 2017-06-02 10:44 | PN ---
SUBJECTIVE: I saw the patient sitting up in bed in TCU. She is working hard in physical therapy. There have been a little bit of aches and pains from time to time from so much exercise, but she is definitely improving. She is happy. She likes the food. She is on Feosol, Miralax, Protonix, Senokot, Ultram, vitamin D, Xanax and Zofran. PHYSICAL EXAMINATION: VITAL SIGNS: 98.6 temperature, 103 pulse, 98/52 blood pressure, 20 respiratory rate, 97% O2 saturation on room air. HEENT: Head is atraumatic, normocephalic. HEART: Regular rate. LUNGS: Clear to auscultation with decreased breath sounds. ABDOMEN: Soft, obese, nontender. EXTREMITIES: +1 to 2 pitting edema . LABORATORY DATA: She has a 7.2 white count, 9.7 hemoglobin, 30 hematocrit with 268 platelets. She has 141 sodium, potassium 3.6, BUN 19, creatinine 1.3. GFR is 40, sugar is 96, calcium 8.9, total bilirubin 0.3, AST is 19, ALT is 22, alkaline phosphatase is 90, total protein is 6, albumin 3.1, globulin 2.8. She is still improving. She is being seen by Infectious Disease. She needs physical therapy before she can go home. She is doing well. She has systemic inflammatory response syndrome, acute on chronic renal failure, hypertension, diabetes, spinal stenosis, urinary incontinence. We will keep an eye on her. Continue with physical therapy. Lucho Mackay DO MTDD
--- NOTE | 2017-06-02 16:53 | PN ---
DATE: 06/02/2017 SUBJECTIVE: The patient is in bed, in no acute distress, nontoxic. OBJECTIVE: VITAL SIGNS: On exam, temperature is 98, blood pressure is 98/50, respiratory rate of 20 and heart rate of 90. EXAMINATION OF HEENT: Unremarkable. NECK: Supple. LUNGS: Have decreased breath sounds. HEART EXAM: Normal S1 and S2. ABDOMEN EXAMINATION: Soft and nontender. LABORATORY EXAMINATION: Reveals a white count of 7.2, hemoglobin of 9 and platelets of 268. Chemistries reveal a BUN of 19 and creatinine of 1.3. REVIEW OF ORDERS: Reveals the patient to be off of antibiotics. ASSESSMENT AND PLAN: A 72-year-old female with systemic inflammatory response syndrome, [id number] renal failure, hypertension, diabetes, spinal stenosis, history of urinary incontinence and history of hysterectomy. Currently off of antibiotics. The patient is at risk for developing a urinary tract infections and nosocomial infections. Bello Joseph MD
[2017-06-03] MEDS: Pantoprazole 40 mg EC Tab PO SCH (05:50)
[2017-06-03 07:07] LABS: HEMATOCRIT 29.3 % (36.0-48.0); MEAN CELL VOLUME 87.5 fl (80.0-105.0); MEAN CORPUSCULAR HEMOGLOBIN 28.4 pg (25.0-35.0); MEAN CORPUSCULAR HGB CONC 32.4 g/dl (31.0-37.0); RED CELL DISTRIBUTION WIDTH 14.3 % (11.5-14.5); WHITE BLOOD COUNT 6.8 10^3/ul (4.5-11.0)
[2017-06-03 07:46] LABS: ALB/GLOB RATIO 1.1 (1.1-1.8); BILIRUBIN,TOTAL 0.2 mg/dL (0.2-1.3); POTASSIUM 3.6 mmol/L (3.6-5.0); TOTAL PROTEIN 5.7 g/dL (5.8-8.3)
[2017-06-03] MEDS: POLYETHYLENE GLYCOL 3350 17 GM/Dose PACKET PO SCH ×2 (09:13→17:20)
--- NOTE | 2017-06-03 11:56 | PN ---
SUBJECTIVE: I saw the patient sitting up in bed in nutritional care unit. She is in good spirits. She is eating her breakfast and she is showing better on physical therapy. She is on Feosol, Miralax, Protonix, Senokot, Ultram, vitamin D, Xanax and Zofran. PHYSICAL EXAMINATION: VITAL SIGNS: 98.1 temperature, 97 pulse, 89/53 and 103/57 blood pressures, 20 respiratory rate, 96% O2 saturation on room air. HEENT: Head is atraumatic, normocephalic. HEART: Regular rate. LUNGS: Decreased breath sounds, but clear. ABDOMEN: Soft, morbidly obese, nontender. Positive bowel sounds. No guarding, no rebound. No CVA tenderness. EXTREMITIES: +2-3/4 pitting edema. LABORATORY DATA: She has a 6.8 white count, 9.5 hemoglobin, 29.3 hematocrit with 266 platelets. Sodium 142, potassium 3.6, BUN 17, creatinine 1.2 back to normal. GFR is up to 44, sugar is 96, calcium 9, total bilirubin is 0.2, AST is 23, ALT is 26, alkaline phosphatase is 83, total protein is 5.7, albumin is 3 and globulin 2.7. She is being seen by infectious disease. IMPRESSION: She has systemic inflammatory response syndrome, acute on chronic renal failure, hypertension, diabetes, spinal stenosis, urinary incontinence, doing fairly well with the antibiotics. Continue with physical therapy. Lucho Mackay DO
--- NOTE | 2017-06-03 15:31 | PN ---
DATE OF SERVICE: 06/03/2017 SUBJECTIVE: The patient is in bed, in no acute distress, nontoxic. OBJECTIVE: VITAL SIGNS: Temperature is 98, blood pressure is 90/50, respiratory rate of 16. HEENT: Unremarkable. NECK: Supple. LUNGS: Decreased breath sounds. HEART: Normal S1 and S2. ABDOMEN: Soft, nontender. LABORATORY DATA: Laboratory examination reveals a white count of 6.8, BUN of 17, creatinine of 1.2. ASSESSMENT AND PLAN: This is a 72-year-old female with systemic inflammatory response syndrome, acute on chronic renal failure, hypertension, diabetes, spinal stenosis, history of urinary incontinence, and history of hysterectomy, currently off antibiotics. The patient is at risk for developing urinary tract infections and nosocomial infections. Bello Joseph MD
[2017-06-04] MEDS: Pantoprazole 40 mg EC Tab PO SCH (05:01)
[2017-06-04 07:16] LABS: HEMATOCRIT 29.6 % (36.0-48.0); MEAN CELL VOLUME 87.3 fl (80.0-105.0); MEAN CORPUSCULAR HEMOGLOBIN 28.3 pg (25.0-35.0); MEAN CORPUSCULAR HGB CONC 32.4 g/dl (31.0-37.0); RED CELL DISTRIBUTION WIDTH 14.3 % (11.5-14.5); WHITE BLOOD COUNT 7.5 10^3/ul (4.5-11.0)
[2017-06-04 07:32] LABS: ALB/GLOB RATIO 1.2 (1.1-1.8); BILIRUBIN,TOTAL 0.3 mg/dL (0.2-1.3); CALCIUM 8.6 mg/dL (8.4-10.5); POTASSIUM 3.7 mmol/L (3.6-5.0)
--- NOTE | 2017-06-04 08:31 | CP.PCM.PN ---
Subjective - Date & Time of Evaluation Date of Evaluation: 06/03/17 Time of Evaluation: 12:25 - Subjective Subjective: renal follow up note no new complaints General Appearance: Comfortable, in no acute respiratory distress Head; Atraumatic ENT: no ulcers no thrush. Tongue is midline. Oropharynx: no rash or ulcers. EYES: Pupils are equal, round and reactive to light accommodation. Eye muscles and extraocular movement intact. Sclera is anicteric. Neck; supple no lymphadenopathy, no thyromegaly or bruit Lungs: Normal respiratory rate/effort. Breath sounds bilateral equal and clear Heart: Normal rate. s1s2 normal. No rub or gallop. Extremities: compression dressing applied to b/l le Neurological: Patient is alert, awake and oriented to person, place and time. No focal deficit. Strength bilateral appropriate and equal Skin: Warm and dry. Normal turgor. No rash. Palpitation: Normal elasticity for age Abdomen: Abdomen is soft. Bowel sounds +. There is no abdominal tenderness Psych:normal affect/mood MSK: no joint tenderness or swelling. Objective - Vital Signs/Intake and Output Vital Signs (last 24 hours): Temp Pulse Resp BP Pulse Ox 98 F 104 H 15 113/67 89 L 06/03/17 16:02 06/03/17 16:02 06/03/17 16:02 06/03/17 16:02 06/03/17 16:02 - Medications Medications: Current Medications Alprazolam (Xanax) 0.25 mg PO HS WALT PRN Reason: Protocol Stop: 06/05/17 22:01 Last Admin: 06/03/17 22:07 Dose: 0.25 mg Cholecalciferol (Vitamin D) 2,000 iu PO DAILY [facility] PRN Reason: Protocol Last Admin: 06/03/17 09:13 Dose: 2,000 iu Ferrous Sulfate (Feosol) 324 mg PO DAILY [facility] Last Admin: 06/03/17 09:13 Dose: 324 mg Ondansetron HCl (Zofran Inj) 4 mg IVP Q4H PRN; Protocol PRN Reason: Nausea/Vomiting Pantoprazole Sodium (Protonix Ec Tab) 40 mg PO 0600 WALT PRN Reason: Protocol Last Admin: 06/04/17 05:01 Dose: 40 mg Polyethylene Glycol (Miralax) 17 gm PO BID WALT PRN Reason: Protocol Last Admin: 06/03/17 17:20 Dose: Not Given Sennosides (Senokot Tab) 17.2 mg PO HS WALT PRN Reason: Protocol Last Admin: 06/03/17 22:07 Dose: Not Given Tramadol HCl (Ultram) 50 mg PO Q8 [facility] PRN Reason: Protocol Last Admin: 06/04/17 05:01 Dose: 50 mg - Labs Labs: 06/04/17 07:10 06/04/17 07:10 Assessment and Plan - Assessment and Plan (Free Text) Assessment: Acute Kidney Injury CKD stage 3, likely HTN kidney disease Obesity HTN (I12.9) Hypokalemia Anemia Lymphedema Plan cr is stable lytes ok bp stable continue vit d supplement lymphedema: stocking b/l LE
[2017-06-04] MEDS: POLYETHYLENE GLYCOL 3350 17 GM/Dose PACKET PO SCH ×2 (10:17→17:36)
--- NOTE | 2017-06-04 12:05 | PN ---
DATE: 06/04/2017 SUBJECTIVE: The patient is in bed, in no acute distress, and nontoxic. PHYSICAL EXAMINATION: VITAL SIGNS: Temperature is 98, blood pressure is 113/60, respiratory rate of 18, and heart rate of 104. HEENT: Examination of HEENT is unremarkable. NECK: Supple. LUNGS: Decreased breath sounds. HEART: Normal S1 and S2. ABDOMEN: Soft and nontender. LABORATORY DATA: Examination reveals a white count of 7.5, hemoglobin of 9, and platelets of 284. Chemistries revealed a BUN of 20 and creatinine of 1.1. MEDICATIONS: Review of orders reveals the patient to be off of antibiotics. ASSESSMENT AND PLAN: This is a 72-year-old female with systemic inflammatory response syndrome, acute on chronic renal failure, hypertension, diabetes, spinal stenosis, history of urinary incontinence, and history of hysterectomy. Currently off of antibiotics, afebrile with white count of 7.5, the patient is at risk for developing nosocomial infections. Bello Joseph MD
--- NOTE | 2017-06-04 15:43 | PN ---
SUBJECTIVE: I saw Sara resting comfortably in bed. She is sitting up, eating her breakfast. She tells me that her legs are puffy and swollen. She is trying on physical therapy and walking a little bit better. She is eating better. Still with pain from time to time. MEDICATIONS: She is currently on Feosol, MiraLax, Protonix, Senokot, tramadol, vitamin D, Xanax, Zofran as needed. She is not on any Lasix. PHYSICAL EXAMINATION: VITAL SIGNS: Temperature 98, pulse 104, blood pressure 113/67, respiratory rate 15, O2 saturation 100% on room air. HEENT: Head is atraumatic, normocephalic. HEART: Regular rate. LUNGS: Decreased breath sounds but clear. No wheezes, rhonchi, or rales. ABDOMEN: Soft, morbidly obese. No guarding. No rebound. No CVA tenderness. EXTREMITIES: The left leg has +3/4 pitting edema. The right leg has +2/4 pitting edema. She is not on any Lasix. I will give her Lasix 20 IV daily and see how she does. LABORATORY DATA: Sodium is 141, potassium 3.7, BUN 20, creatinine 1.1 , GFR is 49, sugar is 90, calcium is 8.6, total bilirubin is 0.3, AST is 19, ALT is 38, alkaline phosphatase 86, total protein 6, albumin 2.3, globulin 2.7, white count 7.5, hemoglobin 9.6, hematocrit 29.6, and platelets 284. ASSESSMENT AND PLAN: She is being seen by Infectious Disease. She is off antibiotics right now. She has episodes of acute on chronic renal failure which improved, hypertension, diabetes, spinal stenosis, and she does have a congestive heart failure history. I will put her on a little bit of intravenous Lasix 20 mg to see if we could diurese her a little bit. I encouraged her to continue with physical therapy, to eat healthy, and we will check her labs tomorrow. Lucho Mackay DO [facility]
[2017-06-04] MEDS ORDERED: Ergocalciferol 50,000 Intl Units Cap PO SCH (18:30)
[2017-06-05] MEDS: Pantoprazole 40 mg EC Tab PO SCH (05:44)
[2017-06-05 06:17] LABS: MEAN CELL VOLUME 87.4 fl (80.0-105.0); MEAN CORPUSCULAR HEMOGLOBIN 28.7 pg (25.0-35.0); MEAN CORPUSCULAR HGB CONC 32.8 g/dl (31.0-37.0); RED CELL DISTRIBUTION WIDTH 14.6 % (11.5-14.5); WHITE BLOOD COUNT 9.6 10^3/ul (4.5-11.0)
[2017-06-05 06:27] LABS: ALB/GLOB RATIO 1.3 (1.1-1.8); BILIRUBIN,TOTAL 0.3 mg/dL (0.2-1.3); CALCIUM 9.5 mg/dL (8.4-10.5); POTASSIUM 4.2 mmol/L (3.6-5.0); TOTAL PROTEIN 6.4 g/dL (5.8-8.3)
[2017-06-05] MEDS: POLYETHYLENE GLYCOL 3350 17 GM/Dose PACKET PO SCH ×2 (10:37→17:41)
--- NOTE | 2017-06-05 11:57 | PN ---
DATE: 06/05/2017 SUBJECTIVE: The patient is in bed in no acute distress, nontoxic. PHYSICAL EXAMINATION: VITAL SIGNS: On exam, temperature is 98, blood pressure is 120/70, and respiratory rate of 16. HEENT: Unremarkable. NECK: Supple. LUNGS: Have decreased breath sounds. HEART: Normal S1 and S2. ABDOMEN: Soft and nontender. LABORATORY EXAMINATION: Reveals a white count is 9.6, hemoglobin of 10, and platelets of 318. BUN of 32 and creatinine of 1.6. Microbiology is noted. ASSESSMENT AND PLAN: A 72-year-old female seen earlier today in 327 with systemic inflammatory response syndrome, acute on chronic renal failure, hypertension, diabetes, spinal stenosis, history of urinary incontinence, and history of hysterectomy. Currently, the patient is off of antibiotics, normal white count, and review of the medications confirms no antibiotics. The patient is at risk for developing nosocomial infection. Bello Joseph MD
--- NOTE | 2017-06-05 14:52 | PN ---
SUBJECTIVE: I saw Sara in nutritional care unit. She is sitting up in bed, eating breakfast. She is in good spirits. She is urinating well with the Lasix. She feels that it is helping her with the leg edema. She is trying physical therapy. No chest pain. No shortness of breath. No abdominal pain. Occasional leg pain. MEDICATIONS: She is on Feosol, Lasix, Miralax, Protonix, Senokot, Ultram, vitamin D, Xanax and Zofran. PHYSICAL EXAMINATION: VITAL SIGNS: She has a 97.6 temperature, 98 pulse, 120/70 blood pressure, 18 respiratory rate, 97% O2 saturation on room air. HEENT: Head is atraumatic, normocephalic. Throat is moist. NECK: Supple. HEART: Regular rate. LUNGS: Clear to auscultation. ABDOMEN: Morbidly obese, soft, nontender. Positive bowel sounds. No guarding. No rebound. No CVA tenderness. EXTREMITIES: +2 to 4 pitting edema in bilateral lower extremities. LABORATORY DATA: She has a 9.6 white count, 10.5 hemoglobin, 32 hematocrit with 318 platelets. Sodium 142, potassium is 4.2, BUN 32, creatinine 1.6, GFR is 32, sugar is 103, calcium is 9.5, total bilirubin is 0.3, AST is 20, ALT is 29, alkaline phosphatase is 90, total protein is 6.4. PLAN: I am going to stop the IV Lasix right now, I think it worked well, we got some diuresis and going to stop it when the kidney function is up a little bit and see how she does tomorrow. I believe I am okay discharging her home tomorrow. She was here for SIRS, [id number] renal failure, hypertension, diabetes, spinal stenosis and CHF. Lucho Mackay DO
[2017-06-05 16:12] VITALS: BP 147/81; PULSE 111; RESP 20; TEMP 98; O2SAT 94
[2017-06-06] MEDS: Pantoprazole 40 mg EC Tab PO SCH (05:59)
[2017-06-06 06:13] LABS: HEMATOCRIT 30.5 % (36.0-48.0); MEAN CELL VOLUME 87.6 fl (80.0-105.0); MEAN CORPUSCULAR HEMOGLOBIN 28.7 pg (25.0-35.0); MEAN CORPUSCULAR HGB CONC 32.8 g/dl (31.0-37.0); RED CELL DISTRIBUTION WIDTH 14.5 % (11.5-14.5)
[2017-06-06 06:29] LABS: ALB/GLOB RATIO 1.2 (1.1-1.8); BILIRUBIN,TOTAL 0.3 mg/dL (0.2-1.3); CALCIUM 9.1 mg/dL (8.4-10.5); POTASSIUM 3.7 mmol/L (3.6-5.0); TOTAL PROTEIN 6.3 g/dL (5.8-8.3)
[2017-06-06] MEDS: POLYETHYLENE GLYCOL 3350 17 GM/Dose PACKET PO SCH (09:34)
--- NOTE | 2017-06-06 13:12 | DS ---
HOSPITAL COURSE: I am discharging her from the TCU where she did very well. She is in good spirits. She is happy. She is walking better. She is eating better and overall improved. PHYSICAL EXAMINATION: VITAL SIGNS: She has 98 temp, 111 pulse, 147/81 blood pressure, 20 respiratory rate and 94% O2 saturation on room air. HEENT: Head is atraumatic and normocephalic. HEART: Regular rate, a little tachy. LUNGS: Decreased breath sounds, but clear. ABDOMEN: Soft, morbidly obese and nontender. EXTREMITIES: A +2 to +4 pitting edema. MEDICATIONS: She is going to go home on her iron, MiraLax, Protonix, Senokot, Ultram, vitamin D, Zofran, Lasix, hydrochlorothiazide, and Xanax. She has her medications at home. I wrote for Feosol and Protonix, which are new for her. LABORATORY DATA: She has 9 white count, 10 hemoglobin, 30.5 hematocrit with 300 platelets, 141 sodium, potassium 3.7, BUN 32, and creatinine 1.5, a little bit better. GFR is 34, sugar is 103, calcium is 9.1, and total bilirubin is 0.3. AST is 22, ALT is 30, alkaline phosphatase is 89, total protein is 6.3 and albumin is 3.4. PLAN: She will been see on a house call. She did very well while she was here. She improved. She was here with SIRS, acute on chronic renal failure, hypertension, diabetes, spinal stenosis and CHF. Lucho Mackay DO
--- NOTE | 2017-06-06 13:27 | PN ---
DATE: 06/06/2017 SUBJECTIVE: The patient is in bed, in no acute distress, and nontoxic. PHYSICAL EXAMINATION: VITAL SIGNS: Temperature is 98, blood pressure is 147/80, respiratory rate of 18, and heart rate of 110. HEENT: Examination of HEENT is unremarkable. NECK: Supple. LUNGS: Have decreased breath sounds. HEART: Normal S1 and S2. GASTROINTESTINAL: Abdominal examination is soft and nontender. LABORATORY DATA: Examination reveals a white count of 9, hemoglobin of 10, and platelets of 300. Chemistries reveals a BUN of 32 and creatinine of 1.5. Microbiology is noted. ASSESSMENT AND PLAN: This is a 72-year-old female who was seen earlier today with SIRS (systemic inflammatory response syndrome), acute on chronic renal failure and hypertension, diabetes, spinal stenosis, history of urinary incontinence, and history of hysterectomy. Currently, the patient is off of antibiotics and is afebrile. The patient is at risk for developing nosocomial infections. Review of the orders confirms the patient to be off of antibiotics. Bello Joseph MD
== END 2017-06-06 13:02 | disposition home or self-care (01) | DRG 683 ==
LOC: TRCU 17:06
PROVIDERS: ADMIT Family Medicine; ATTEND Family Medicine
PROC: F07Z9FZ Gait Training/Functional Ambulation Treatment using Assistive, Adaptive, Supportive or Protective Equipment (ICD-10-PCS; principal; 2017-05-30)
PROC: F07M6ZZ Therapeutic Exercise Treatment of Musculoskeletal System - Whole Body (ICD-10-PCS; 2017-05-30)
PROC: F08Z1ZZ Dressing Techniques Treatment (ICD-10-PCS; 2017-05-31)
PROC: F08Z2ZZ Grooming/Personal Hygiene Treatment (ICD-10-PCS; 2017-05-31)
PROC: F08Z0ZZ Bathing/Showering Techniques Treatment (ICD-10-PCS; 2017-05-31)
DX: N17.9 Acute kidney failure, unspecified (principal); I13.0 Hypertensive heart and chronic kidney disease with heart failure and stage 1 through stage 4 chronic kidney disease, or unspecified chronic kidney disease; E11.22 Type 2 diabetes mellitus with diabetic chronic kidney disease; E11.40 Type 2 diabetes mellitus with diabetic neuropathy, unspecified; R65.10 Systemic inflammatory response syndrome (SIRS) of non-infectious origin without acute organ dysfunction; I50.9 Heart failure, unspecified; N18.3 Chronic kidney disease, stage 3 (moderate); D64.9 Anemia, unspecified; E66.9 Obesity, unspecified; E86.0 Dehydration; E87.6 Hypokalemia; I89.0 Lymphedema, not elsewhere classified; K59.00 Constipation, unspecified; M48.00 Spinal stenosis, site unspecified; R32 Unspecified urinary incontinence; Z82.49 Family history of ischemic heart disease and other diseases of the circulatory system; Z87.01 Personal history of pneumonia (recurrent); Z90.710 Acquired absence of both cervix and uterus